=== PATIENT | female | born 1990 | race African-American/Black ===

== ENCOUNTER 2017-07-15 14:20 | Emergency (ER) | payer MEDICAID, SELFPAY ==
[2017-07-15 14:22] VITALS: BP 108/65; PULSE 92; RESP 16; TEMP 37.1; O2SAT 99; BMI 27.7
--- NOTE | 2017-07-15 14:31 | RAD_ITS ---
STUDY: X-RAY - RIGHT KNEE REASON FOR EXAM: Female, 27 years old. Swelling and pain TECHNIQUE: 4 view(s) of the knee. COMPARISON: None. FINDINGS: Minimal spurring in the knee joint. No definite evidence for acute fracture seen. Small knee joint effusion suspected. IMPRESSION: No definite evidence for acute fractures. Small knee joint effusion suspected. Electronically Signed: Antonio Chirinos, at 15:13 EDT Tel , Service support , RAD/Knee 4 or More Views
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
[2017-07-15] MEDS: Naproxen 500 MG Tablet PO (14:41)
--- NOTE | 2017-07-15 15:17 | ED.DEP ---
ED Disposition - Plan for ED Patient: Chief Complaint: Lower Extremity Injury Instructions: ED Knee Pain [facility] Prescriptions: Oxycodone HCl/Acetaminophen [Percocet 5/325] 1 tab PO Q6H PRN PRN 3 Days #2 tab PRN Reason: Pain Naproxen [Naprosyn] 500 mg PO BID PRN #20 tab Referrals: Rick Asencio MD [Primary Care Provider] -
[2017-07-15 15:30] VITALS: BP 100/53; PULSE 93; RESP 16; O2SAT 98
== END 2017-07-15 15:31 | disposition home or self-care (01) ==
PROVIDERS: Emergency Provider Emergency Medicine; Family Provider Family Medicine; PCP Family Medicine
DX: S80.01XA Contusion of right knee, initial encounter (principal); Y09 Assault by unspecified means; Y93.89 Activity, other specified; Y92.89 Other specified places as the place of occurrence of the external cause; Y99.8 Other external cause status
CPT/HCPCS: 73564; 99282

== ENCOUNTER 2018-05-22 10:28 | Emergency (ER) | payer MEDICAID, SELFPAY ==
[2018-05-22 10:30] VITALS: BP 126/92; PULSE 76; RESP 16; TEMP 36.2; O2SAT 99; BMI 36.8
--- NOTE | 2018-05-22 10:43 | ED.DCSUM_ITS ---
History of Present Illness Chief Complaint: Back Informant: Patient Onset: Yesterday Context: Sudden Onset Timing: Continuous Quality: Pain right lower back radiating posteriorly to her ankle Location: Right side Current Severity: Mild Maximum Severity: Moderate Worsened by: Weightbearing, walking, bending Relieved by: Nothing Associated Symptoms: Radiation posterior right lower extremity, otherwise normal Narrative: Patient is a 28-year-old female status post discectomy 2011. She is uncertain whether it was L4 or L5 disc level. She presents with atraumatic right lower back pain that radiates posterior aspect right lower extremity. She reports pain with movement, weightbearing and bending. She complains of increased pain going up or down steps. She does not have weakness in her quadricep muscles. She denies foot drop. She denies bowel bladder dysfunction. Denies saddle paresthesia or anesthesia. She denies fever, chills night sweats. Denies weight gain or weight loss. She denies urologic symptoms. She denies IV drug use. She is on no immunosuppressive meds. Prior similar symptoms: Yes - Prior to discectomy 2011 Recent Illness/Hospitalization: No Past Medical History - Allergies and Home Meds Allergies/Adverse Reactions: Allergies hydrocodone bitartrate [From Vicodin] Adverse Reaction (Verified 05/22/18 10:39) Nausea Primary Care Physician: Patti Gonzalez MD [STAFF PHYSICIAN] - 1-2 Weeks Rick Asencio MD [Primary Care Provider] - Surgical History: - - Discectomy lumbar spine uncertain level Lives: Spouse/ Significant Other Smoking Status: Former smoker Drugs: None Review of Systems General: Denies: Chills, Fever, Malaise, Subjective, Sweats, Weight loss, - Eyes: Denies: Visual changes - bilaterally, Diplopia ENT: Denies: Rhinorrhea, Sore throat Cardiovascular: Denies: Chest pain, Palpitations Respiratory: Denies: Dyspnea, Cough, Dyspnea on exertion Gastrointestinal: Denies: Abdominal pain, Nausea, Vomiting, Diarrhea, Melena, Hematochezia Genitourinary: Denies: Dysuria, Hematuria, Frequency Musculoskeletal: Reports: Back pain, Extremity Pain - She complains of pain posterior central right lower extremity.. Denies: Myalgias, Arthralgias, Neck pain, Swelling, -, - Skin: Denies: Rash, Wounds Neurological: Denies: Headache, Weakness, Numbness Hematologic: Denies: Easy bruising, Easy bleeding Allergy: Denies: Uticaria, Swelling of the mouth Physical Exam Vital Signs/Narrative: Vital Signs Temp Pulse Resp BP Pulse Ox 05/22/18 10:30 97.2 F L 76 16 126/92 H 99 Inital Vital Signs reviewed: Yes General: Well nourished, Well developed, Obese - BMI is 36.8., No Acute Distress Head: Normocephalic, Atraumatic Eyes: Perrl, EOMI ENT: Moist mucous membranes, No rhinorrhea Neck: Supple, Nontender, No lymphadenopathy, No JVD Cardiovascular: Regular rate, Regular rhythm, No murmurs, Normal S1, Normal S2 Respiratory: No distress, CTA bilaterally, Chest nontender Abdomen: Soft, Nontender, Nondistended, Normal bowel sounds, No masses Back: Nontender, Normal Inspection, - - There is minimal discomfort right lower back. Straight leg test is positive at 30-40 degrees on right with a positive bowstring sign. Crossover test is negative.. Negative for: Spinal tenderness Extremities: Nontender, No edema, - - DP and PT pulse are 2+ and symmetric. Skin: Normal color, No rash. Negative for: Cyanosis, Jaundice, Rash Neurological: Alert, Oriented x3, Cranial nerves II-XII grossly intact, Normal Strength, Normal DTR - Patella and ankle reflex are 3+ and symmetric. There is no clonus or Babinski sign noted., Normal Gait - Patient walks with a slight limp. She is able to walk on her heels and toes. She is able to do a 1 legged squat right and left side.. Negative for: Normal Sensation - She has abnormal sensation distal lateral right leg and lateral aspect of right foot. Psychological: Normal affect, Normal Mood Diagnostic/Tx/Re-eval - Medical Decision Making Patient has acute atraumatic back pain with sciatica and positive straight leg test and bowstring sign. Crossover test was negative. IV was established. She was medicated. Since she has no neurologic deficits radiologic imaging is not indicated at this time. And history and physical exam do not raise concern for cauda equina. Patient was reassessed at 1115. She reports significant improvement. She still has some discomfort. Will reevaluate again at 1130. If symptoms are not worse will discharge with prescription for NSAID and opiate analgesia and referral to spine surgery. ED Disposition - Plan for ED Patient: Disposition: [facility] Diagnosis: Right-sided low back pain with right-sided sciatica Instructions: ED Sciatica Prescriptions: Hydrocodone Bitart/Apap 5-325 [[place] 5MG-325MG] 1 tab PO Q6H PRN PRN 3 Days #10 tab PRN Reason: Pain Naproxen [Naprosyn] 500 mg PO BID #14 tab Referrals: Rick Asencio MD [Primary Care Provider] - Patti Gonzalez MD [STAFF PHYSICIAN] - 1-2 Weeks
[2018-05-22] MEDS: Morphine 4 MG/ML Syringe IV (10:53)
[2018-05-22] MEDS: Ondansetron 4 MG/2 ML Vial IV (10:53)
[2018-05-22] MEDS: Ketorolac 15 MG/ML Vial IV (10:53)
--- NOTE | 2018-05-22 11:35 | ED.RN ---
MD AWARE OF ADVERSE RXN TO HYDROCODONE, RXN IS NAUSEA. RX SENT HOME FOR HYDROCODONE AND TOLD TO TELL PT TO EAT CRACKERS.
[2018-05-22 11:40] VITALS: BP 122/87; PULSE 78; RESP 12; O2SAT 99
== END 2018-05-22 11:41 | disposition short-term general hospital (02) ==
PROVIDERS: Emergency Provider Emergency Medicine; Family Provider Family Medicine; PCP Family Medicine
DX: M54.41 Lumbago with sciatica, right side (principal); Z87.891 Personal history of nicotine dependence; E66.9 Obesity, unspecified; Z68.36 Body mass index [BMI] 36.0-36.9, adult
CPT/HCPCS: 96374; 96375; 99284; A4216; J2405

== ENCOUNTER 2018-07-09 09:27 | Emergency (ER) | payer MEDICAID, SELFPAY ==
[2018-07-09 09:28] VITALS: BP 125/75; PULSE 79; RESP 17; TEMP 36.4; O2SAT 98; BMI 32.5
--- NOTE | 2018-07-09 09:41 | ED.VISSUMM ---
- ER Visit Summary Date of Service: 07/09/18 Chief Complaint: [Back pain] History of Present Illness: The patient is a 28 F [presents to the emergency department complaint of back pain started 2 days ago. Patient states that she slipped on a different mattress and woke up with pain that that eventually resolved after walking around for short time. Patient states that she woke up again this morning with pain and the pain is not gone away. Patient describes pain rating down her right leg. She denies any weakness in the extremity. She denies any recent fall or injury. Patient does have a history of a discectomy 6 years ago. Patient was told she may need another discectomy at some point but she never followed up with her surgeon. 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 Patient states this is been a recurrent issue of back pain for her and the presentation is typical. She is not in pain management. She denies urinary symptoms. Denies saddle anesthesia. Denies loss of bowel or bladder function.] Patient states that she had an MRI within the last year that showed improvement compared to prior MRI and there was nothing otherwise concerning her surgical. Physical Examination: [HEENT-PERRLA, EOMI. Cranial nerves II through XII grossly intact. TMs clear. Mucous membranes moist. No adenopathy. Cardiovascular-regular rate and rhythm without murmur or ectopy Lungs-clear to auscultation, chest wall stable without crepitus or subcu emphysema Abdomen-normoactive bowel sounds, soft, nontender, no rebound or rigidity, no peritoneal signs. Back exam-patient has diffuse tenderness over the lumbar paraspinal musculature on the right. Patient has a positive straight leg raise on the right at 35 degrees. Deep tendon reflexes are plus 2 out of 4 bilaterally at the patella and Achilles. Patient has normal L5 extension bilaterally. Patient has somewhat decreased sensation to the lateral aspect of the right calf compared to the left. Extremities-intact ?4, normal range of motion, normal pulses, atraumatic] Test Results: [None indicated] Emergency Department Course and Treatment: [Patient was medicated with Dilaudid, Toradol, and Norflex.] Treatment Plan: [Patient will be given a prescription for Percocet, Naprosyn, and Flexeril. Patient also will be started on a Medrol Dosepak.] Disposition: [Discharged home in stable condition. Patient advised to follow-up with her primary care physician and will be given referral to neurosurgeon for follow-up.] Impression: [Acute exacerbation of chronic back pain and sciatica] This note was generated with [employer] dictation software. It may contain incorrect words, spelling, and punctuation that were not noted in review of the chart prior to signing ED Disposition - Plan for ED Patient: Referrals: Rick Asencio MD [Primary Care Provider] -
--- NOTE | 2018-07-09 09:47 | ED.DEP ---
ED Disposition - Plan for ED Patient: Instructions: ED Sciatica Prescriptions: Oxycodone HCl/Acetaminophen [Percocet 5/325] 1 tab PO Q6H PRN PRN 3 Days #12 tab PRN Reason: Pain MethylPREDNISolone DosePak [Medrol DosePak] 4 mg PO UD #1 box Naproxen [Naprosyn] 500 mg PO BID PRN #20 tab Cyclobenzaprine [Flexeril] 10 mg PO TID PRN #20 tab PRN Reason: Muscle Spasm Referrals: Rick Asencio MD [Primary Care Provider] - 3-5 Days Albert Muir MD [NON-STAFF] - 3-5 Days
[2018-07-09] MEDS: Ketorolac 60 MG/2 ML Vial IM (10:00)
[2018-07-09] MEDS: Orphenadrine 60 MG/2 ML Ampul IM (10:00)
[2018-07-09] MEDS: HYDROmorphone 1 MG/ML Syringe IM (10:01)
[2018-07-09 11:02] VITALS: BP 126/74; PULSE 62; RESP 16; O2SAT 100
== END 2018-07-09 11:03 | disposition home or self-care (01) ==
LOC: ED 10:31
PROVIDERS: Emergency Provider Emergency Medicine; Family Provider Family Medicine; PCP Family Medicine
DX: M54.41 Lumbago with sciatica, right side (principal); G89.29 Other chronic pain; M54.16 Radiculopathy, lumbar region
CPT/HCPCS: 96372; 99282

== ENCOUNTER 2018-09-04 16:41 | Emergency (ER) | payer MEDICAID, SELFPAY ==
[2018-09-04 16:42] VITALS: BP 116/73; PULSE 68; RESP 18; TEMP 36.6; O2SAT 98; BMI 34.4
--- NOTE | 2018-09-04 16:56 | ED.RN ---
stomach burning, nontender
--- NOTE | 2018-09-04 16:59 | US_ITS ---
STUDY: FIRST TRIMESTER OBSTETRICAL ULTRASOUND REASON FOR EXAM: Female, 28 years old. , pelvic pain, abdominal pain. LMP: 06/16/2018 TECHNIQUE: Transabdominal TECHNICAL QUALITY: Adequate. PRIOR ULTRASOUND: None. FINDINGS: There is visualization of a single gestational sac in a normal intrauterine position. The mean sac diameter (MSD) measures 59 mm, indicating an estimated gestational age (EGA) of weeks, days. The gestational sac shape is within normal limits. There is a visualized yolk sac. The yolk sac measures 5 mm. There is visualization of the placenta. Placenta is anterior. There is visualization of a live embryo. The crown-rump length (CRL) measures 48 mm, indicating an estimated gestational age (EGA) of 11 weeks, 4 days. There is demonstrated cardiac activity with a heart rate of 169 bpm. The estimated gestation age (EGA) by LMP is 11 weeks, 3 days. The estimated date of delivery (JERMAN) by LMP is . The estimated gestation age (EGA) by US is 11 weeks, 4 days. The estimated date of delivery (JERMAN) by US is . The uterus measures 14.8 x 8.5 x 12.0. There is no demonstrated uterine fibroid. The cervix is closed. The right ovary measures 3.3 x 2.3 x 2.3. There is no right ovarian cyst. There is no visualized right adnexal mass or complex lesion. The left ovary measures 5.3 x 1.7 x 2.6. There is no left ovarian cyst. There is no visualized left adnexal mass or complex lesion. There is no fluid in the cul de sac. US/Init OB < 14Wks US IMPRESSION: Living intrauterine of 11 weeks 4 days as described above. Electronically Signed: Froilan Sandoval MD at 18:12 EDT Tel , Service support ,
--- NOTE | 2018-09-04 17:00 | US_ITS ---
STUDY: ABDOMINAL ULTRASOUND - RIGHT UPPER QUADRANT REASON FOR VISIT: Female, 28 years old. Pain TECHNIQUE: Ultrasound evaluation of the right upper quadrant was performed with real-time and static andrews-scale imaging. TECHNICAL QUALITY: Adequate. COMPARISON: None. FINDINGS: Liver: The liver measures 17 cm. There is normal echogenicity of the liver. The bile ducts are within normal limits. There is hepatic color flow. The direction of portal flow is hepatopetal. There is no demonstrated mass lesion. Gallbladder: Normal distended gallbladder. The gallbladder wall measures 2 mm. There is a negative sonographic De Paz's sign. There is no pericholecystic fluid. There are no gallstones. Common Bile Duct (C.B.D.): The common bile duct measures 3 mm. Pancreas: Normal size of the head, body and tail of the pancreas. There is normal echogenicity of the pancreas. There is no demonstrated pancreatic mass or cyst. Right Kidney: Normal size of the right kidney. The right kidney measures 13 cm. Normal renal cortex. There is no demonstrated renal mass or cyst. There is no right hydronephrosis. US/Gallbladder IMPRESSION: No acute abdominal pathology identified. Mild hepatomegaly. Electronically Signed: Rick Bond, at 18:00 EDT Tel , Service support ,
--- NOTE | 2018-09-04 17:02 | ED.VISSUMM ---
- ER Visit Summary Date of Service: 09/04/18 Chief Complaint: Abdominal pain History of Present Illness: The patient is a 28 F presenting with abdominal pain. She states this started earlier today. Pain has been waxing and waning throughout the day. She has nausea with no vomiting. She denies diarrhea or constipation. Denies urinary complaints. She is 11 weeks . She denies vaginal bleeding or fluid leakage. She is G2, P1. She has had an ultrasound during this . She denies other complaints. Physical Examination: Vitals are stable. Patient is afebrile. Alert no acute distress. HEENT exam is unremarkable. Neck is supple. Lungs are clear and equal bilaterally. Heart is regular rate and rhythm. Abdomen is soft right upper quadrant and epigastric tenderness with no rebound or guarding Extremities are unremarkable. Skin is warm and dry. Remainder of exam is unremarkable. Emergency Department Course and Treatment: Patient given IV fluids, Zofran. CBC, chemistries unremarkable. Liver lipase are normal. Urinalysis unremarkable. Pelvic ultrasound shows living intrauterine of 11 weeks 4 days. Gallbladder ultrasound shows no acute abdominal pathology identified. On reevaluation, patient is feeling much improved. She is advised to follow-up with her REMOVABLE PROSTHODONTIST. Advised return instructions should her symptoms worsen. Disposition: Discharge home Impression: Abdominal pain, This note was generated with [employer] dictation software. It may contain incorrect words, spelling, and punctuation that were not noted in review of the chart prior to signing ED Disposition - Plan for ED Patient: Instructions: ABDOMINAL PAIN, Unknown Cause, (Female) Referrals: Gwendolyn Ayala MD [STAFF PHYSICIAN] - Rick Asencio MD [Primary Care Provider] -
[2018-09-04] MEDS: 0.9% Normal Saline 1,000 ML 999 ML IV (17:08)
[2018-09-04] MEDS: Ondansetron 4 MG/2 ML Vial IV (17:08)
[2018-09-04 17:16] LABS: Mucous, Urine 0 SEEN /hpf (<or=2+); Red Blood Cells-Urine 0 SEEN /hpf (0-5)
[2018-09-04 17:19] LABS: Color, Urine Yellow (Yellow); Glucose, Dipstick Normal (Normal); Ketone-Dipstick Negative (Negative); Leukocyte Esterase-Dipstick 500 /ul (Negative); Nitrite-Dipstick Negative (Negative); Occult Blood-Urine Negative /ul (Negative); Protein-Dipstick Negative (Negative); Specific Gravity, Urine 1.015 (1.002-1.030); Urine Bilirubin Dipstick Negative (Negative); Urine Clarity Clear (Clear); Urine Urobilinogen Normal (Normal); Urine pH 6.5 (5.0 - 8.0)
[2018-09-04 17:20] LABS: Absolute Lymphocyte Count 2.29 X10^3/uL (0.83-4.51); Absolute Neutrophil Count 5.7 X10^3/uL (2.0-7.7); Basophil# 0.03 X10^3/uL; Basophil% 0.3 % (0-1); Eosinophil# 0.07 X10^3/uL; Eosinophils% 0.8 % (0-5); Hematocrit 37.7 % (37-47); Hemoglobin 12.4 g/dL (12.0-15.0); Lymphocyte # 2.29 X10^3/ul (4.0); Lymphocyte % 25.9 % (19-41); Mean Corp Hgb Conc 32.9 g/dL (32-36); Mean Corpuscular Hgb 28.5 pg (27.0-32.0); Mean Corpuscular Volume 86.7 fL (81-99); Mean Platelet Vol. 9.2 fl (6.2-12.0); Monocyte# 0.76 X10^3/uL; Monocyte% 8.6 % (0-10); NRBC Flagged by Analyzer 0 % (0-5); Neutrophil # 5.67 X10^3/uL (2.7-7.7); Neutrophil % 64.1 % (47-70); Platelet Count 337 K/mm3 (150-450); RBC Distribution Width CV 12.8 % (11.6-14.6); RBC Distribution Width SD 40.3 fl (35.1-43.9); Red Blood Count 4.35 M/mm3 (4.2-5.4); White Blood Count 8.9 K/mm3 (4.4-11.0)
[2018-09-04 17:25] LABS: Bacteria RARE /hpf (None Seen); Squamous Epithelial Cells - UA 0-5 SEEN /hpf (5-10)
[2018-09-04 17:26] LABS: White Blood Cells 0-5 SEEN /hpf (0-5)
[2018-09-04 17:38] LABS: AST(SGOT) 18 U/L (15-37); Alanine Aminotransfer ALT/SGPT 29 U/L (13-56); Albumin, Serum 3.3 g/dL (3.2-5.0); Alkaline Phosphatase 40 U/L (45-117); Anion Gap 3 (5-15); BUN 11 mg/dL (7-18); BUN/Creat Ratio 17.2 RATIO (10-20); Bilirubin, Direct < 0.05 mg/dL (0.00-0.30); Calcium,Total 8.5 mg/dL (8.5-10.1); Chloride 105 mmol/L (98-107); Creatinine, Serum 0.64 mg/dL (0.55-1.02); EST Glomerular Filtration Rate 117 mL/min (>60); Est Glom Filt Rate - Afr Amer 142 mL/min (>60); Estimated Creatinine Clearance 113.01 ml/min; Globulin 3.7 g/dL (2.2-4.2); Glucose 84 mg/dL (74-106); Lipase 133 U/L (73-393); Potassium 3.6 mmol/L (3.5-5.1); Sodium Level 136 mmol/L (136-145)
--- NOTE | 2018-09-04 18:25 | ED.DEP ---
ED Disposition - Plan for ED Patient: Instructions: ABDOMINAL PAIN, Unknown Cause, (Female) Referrals: Rick Asencio MD [Primary Care Provider] - Gwendolyn Ayala MD [STAFF PHYSICIAN] -
[2018-09-04 18:35] VITALS: BP 107/70; PULSE 69; RESP 16; O2SAT 100
== END 2018-09-04 18:36 | disposition home or self-care (01) ==
LOC: ED 17:57
PROVIDERS: Emergency Provider Emergency Medicine; Family Provider Family Medicine; PCP Family Medicine
DX: O26.891 Other specified pregnancy related conditions, first trimester (principal); R10.13 Epigastric pain; Z3A.11 11 weeks gestation of pregnancy
CPT/HCPCS: 76705; 76801; 80048; 80076; 81001; 83690; 85025; 96361; 96374; 99283; J7030; J2405

== ENCOUNTER 2018-12-23 20:44 | Emergency (ER) | payer MEDICAID, SELFPAY ==
[2018-12-23 20:44] VITALS: BP 118/81; PULSE 81; RESP 16; TEMP 36.4; O2SAT 98; BMI 36.7
[2018-12-23] MEDS: 0.9% Normal Saline 1,000 ML 1000 ML IV (21:18)
[2018-12-23 21:42] LABS: Absolute Lymphocyte Count 2.49 X10^3/uL (0.83-4.51); Absolute Neutrophil Count 7.8 X10^3/uL (2.0-7.7); Basophil# 0.04 X10^3/uL; Basophil% 0.3 % (0-1); Eosinophils% 0.9 % (0-5); Hematocrit 34.3 % (37-47); Hemoglobin 11.3 g/dL (12.0-15.0); Lymphocyte # 2.49 X10^3/ul (4.0); Lymphocyte % 21.7 % (19-41); Mean Corp Hgb Conc 32.9 g/dL (32-36); Mean Corpuscular Hgb 28.7 pg (27.0-32.0); Mean Corpuscular Volume 87.1 fL (81-99); Mean Platelet Vol. 9.5 fl (6.2-12.0); Monocyte# 0.91 X10^3/uL; Monocyte% 7.9 % (0-10); NRBC Flagged by Analyzer 0 % (0-5); Neutrophil # 7.79 X10^3/uL (2.7-7.7); Neutrophil % 68.2 % (47-70); Platelet Count 317 K/mm3 (150-450); RBC Distribution Width CV 13.5 % (11.6-14.6); RBC Distribution Width SD 42.6 fl (35.1-43.9); Red Blood Count 3.94 M/mm3 (4.2-5.4); White Blood Count 11.5 K/mm3 (4.4-11.0)
[2018-12-23 21:44] LABS: Anion Gap 8 (5-15); BUN 8 mg/dL (7-18); BUN/Creat Ratio 17.1 RATIO (10-20); Calcium,Total 8.9 mg/dL (8.5-10.1); Chloride 107 mmol/L (98-107); Creatinine, Serum 0.47 mg/dL (0.55-1.02); EST Glomerular Filtration Rate 168 mL/min (>60); Est Glom Filt Rate - Afr Amer 203 mL/min (>60); Estimated Creatinine Clearance 153.88 ml/min; Glucose 90 mg/dL (74-106); Potassium 3.3 mmol/L (3.5-5.1); Sodium Level 138 mmol/L (136-145)
[2018-12-23 22:24] LABS: Bacteria 0 SEEN /hpf (None Seen); Mucous, Urine 0 SEEN /hpf (<or=2+); Red Blood Cells-Urine 0 SEEN /hpf (0-5)
[2018-12-23 22:28] LABS: Color, Urine Yellow (Yellow); Glucose, Dipstick Normal (Normal); Ketone-Dipstick 5 mg/dl (Negative); Leukocyte Esterase-Dipstick 25 /ul (Negative); Nitrite-Dipstick Negative (Negative); Occult Blood-Urine Negative /ul (Negative); Protein-Dipstick Negative (Negative); Urine Bilirubin Dipstick Negative (Negative); Urine Clarity Sl. Cloudy (Clear); Urine Urobilinogen Normal (Normal)
[2018-12-23 22:38] LABS: Squamous Epithelial Cells - UA 0-5 SEEN /hpf (5-10); White Blood Cells 0-5 SEEN /hpf (0-5)
--- NOTE | 2018-12-23 22:42 | ED.DCSUM_ITS ---
- ER Visit Summary Date of Service: 12/23/18 Chief Complaint: Generalized weakness History of Present Illness: The patient is a 28 F reportedly 27 weeks G2, P1 Ab0. States that she has had nausea vomiting diarrhea intermittently throughout the but she did not want to take any medication for that. 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 Denies any dysuria. No fever. No bleeding. Physical Examination: Young female vital signs are stable afebrile. She does not look septic or toxic. She is in no acute distress. HEENT exam unremarkable. Moist week's membranes. Neck nontender. No lymphadenopathy. Lungs clear to auscultation bilaterally. Heart regular rhythm no murmur. Abdomen soft. Nontender. Normal bowel sounds. No peritoneal signs. Gravid nontender uterus. Patient is moving all 4 extremities. Calves are nontender without edema or cords. Neurologically she is awake and alert with no focal motor deficits. Test Results: CBC shows a white count of 11. Hemoglobin 11.3 her baseline is typically 12. No bands. Electrolytes show potassium of 3.3. Gap of 8. Normal creatinine. UA normal. heart tones positive. Emergency Department Course and Treatment: Treated with a liter normal saline. On repeat exam she is doing well at 2241. She will be discharged to home. Treatment Plan: Fluids and rest. Follow-up with her FREIGHT CLERK. Disposition: Discharge Impression: Generalized weakness Nausea and vomiting 27 weeks This note was generated with [employer] dictation software. It may contain incorrect words, spelling, and punctuation that were not noted in review of the chart prior to signing ED Disposition - Plan for ED Patient: Disposition: Home or Assisted Living Instructions: WEAKNESS, Unk Cause Prescriptions: Ondansetron [Zofran Odt] 4 mg PO Q8H PRN PRN #10 tab PRN Reason: Nausea Prescription Printed Referrals: Rick Asencio MD [Primary Care Provider] - As Needed Otilia Fletcher MD [STAFF PHYSICIAN] - 3-5 Days if not improving Additional Instructions: Fluids and rest. Zofran as needed for nausea. Follow-up with your PRESS PIPE INSPECTOR doctors.
--- NOTE | 2018-12-23 22:44 | ED.DEP ---
ED Disposition - Plan for ED Patient: Disposition: Home or Assisted Living Instructions: WEAKNESS, Unk Cause Prescriptions: Ondansetron [Zofran Odt] 4 mg PO Q8H PRN PRN #10 tab PRN Reason: Nausea Prescription Printed Referrals: Rick Asencio MD [Primary Care Provider] - As Needed Otilia Fletcher MD [STAFF PHYSICIAN] - 3-5 Days if not improving Additional Instructions: Fluids and rest. Zofran as needed for nausea. Follow-up with your RESIDENT SERVICES DIRECTOR doctors.
[2018-12-23 23:10] VITALS: BP 104/58; PULSE 69; RESP 14; O2SAT 99
== END 2018-12-23 23:10 | disposition home or self-care (01) ==
PROVIDERS: Emergency Provider Emergency Medicine; Family Provider Family Medicine; PCP Family Medicine
DX: O21.2 Late vomiting of pregnancy (principal); O26.892 Other specified pregnancy related conditions, second trimester; R53.1 Weakness; Z3A.27 27 weeks gestation of pregnancy
CPT/HCPCS: 80048; 81001; 85025; 96360; 99284; J7030; A4216

== ENCOUNTER 2019-01-10 14:36 | Emergency (ER) | payer MEDICAID, SELFPAY ==
[2019-01-10 14:37] VITALS: BP 108/69; PULSE 96; RESP 16; TEMP 36.7; O2SAT 99; BMI 35.3
[2019-01-10 15:03] VITALS: O2SAT 97
--- NOTE | 2019-01-10 15:19 | CT_ITS ---
STUDY: CTA CHEST REASON FOR EXAM: Female, 28 years old. Elevated d-dimer. Shortness of breath. Patient is 29 weeks RADIATION DOSAGE (If Supplied By Facility): CTDIvol = ( 19.11 ) mGy, DLP = ( 581.07 ) mGycm TECHNIQUE: The examination was performed with the intravenous administration of IV Isovue 370 100. Post-processing of the angiographic images was performed, with multiplanar reformation and 3D reconstruction. Individualized dose optimization techniques were used for this CT. COMPARISON: CT abdomen and pelvis dated April 20, 2016 FINDINGS: Normal enhancement of the main pulmonary artery and right and left pulmonary arteries. Normal enhancement of the bilateral peripheral pulmonary arteries. There is no demonstrated pulmonary embolism. Normal thoracic aorta and visualized great vessels. There is no demonstrated aortic dissection. Normal heart and pericardium. Normal mediastinum. Normal hilar regions. Normal visualized trachea and bronchi. The lungs are well expanded. Normal pulmonary parenchyma. Normal pleura. Normal chest wall structures. Normal osseous structures. Normal visualized upper abdomen. CT/CTA Chest W/WO Contrast IMPRESSION: Normal CTA chest examination, without a demonstrated pulmonary embolism or arterial dissection. Electronically Signed: Narciso Santana DO at 16:36 EST Tel , Service support ,
--- NOTE | 2019-01-10 15:20 | ED.DCSUM_ITS ---
- ER Visit Summary Date of Service: 01/10/19 Chief Complaint: Shortness of breath History of Present Illness: The patient is a 28 F who presents with shortness of breath that has been constant throughout her . Patient states she is approximately 7 months . Patient states her breathing is worse with any exercise. Patient denies any cough. Patient denies any fevers or chills. Patient denies any sore throat or rhinorrhea. Patient states she has some intermittent chest pain that she describes as a weird feeling in her chest. Patient states this comes and goes. Patient states she did have a syncopal episode yesterday. Patient went to urgent care today and was told to come to [facility] emergency department because her d-dimer was elevated. Physical Examination: Vital signs are stable. Patient is afebrile. Patient is in no acute distress. Oral mucosa is pink and moist. Neck is supple. Trachea is midline. There is no JVD. Heart was regular rate and rhythm. Lungs are clear and equal bilaterally. Abdomen is soft. There is a gravid uterus. There is no tenderness. There is no guarding or rebound. Cranial nerves II through XII are intact. There are no focal motor or sensory deficits noted. Test Results: CBC shows a mild anemia with a hemoglobin of 11.2 and hematocrit 32.9. Basic metabolic profile was normal. CTA of the chest was obtained. There is no evidence of pulmonary embolism or aortic dissection. Emergency Department Course and Treatment: Patient was instructed to follow-up with her EDUCATION DEPARTMENT CHAIR and primary care physician as scheduled. Patient understood and was agreeable with the plan. All questions were answered. Disposition: Discharge home Impression: 1. Dyspnea 2. This note was generated with [employer] dictation software. It may contain incorrect words, spelling, and punctuation that were not noted in review of the chart prior to signing ED Disposition - Plan for ED Patient: Disposition: Home or Assisted Living Diagnosis: Dyspnea Instructions: ED Dyspnea Referrals: Rick Asencio MD [Primary Care Provider] - 5-7 Days
[2019-01-10] MEDS: 0.9% Normal Saline 1,000 ML 1000 ML IV (15:33)
[2019-01-10 15:39] LABS: Absolute Lymphocyte Count 2.01 X10^3/uL (0.83-4.51); Absolute Neutrophil Count 6.7 X10^3/uL (2.0-7.7); Basophil# 0.01 X10^3/uL; Basophil% 0.1 % (0-1); Eosinophil# 0.08 X10^3/uL; Eosinophils% 0.8 % (0-5); Hematocrit 32.9 % (37-47); Hemoglobin 11.2 g/dL (12.0-15.0); Lymphocyte # 2.01 X10^3/ul (4.0); Lymphocyte % 20.9 % (19-41); Mean Corpuscular Hgb 29.6 pg (27.0-32.0); Mean Corpuscular Volume 86.8 fL (81-99); Mean Platelet Vol. 9.4 fl (6.2-12.0); Monocyte# 0.79 X10^3/uL; Monocyte% 8.2 % (0-10); NRBC Flagged by Analyzer 0 % (0-5); Neutrophil # 6.67 X10^3/uL (2.7-7.7); Neutrophil % 69.2 % (47-70); Platelet Count 286 K/mm3 (150-450); RBC Distribution Width CV 13.9 % (11.6-14.6); RBC Distribution Width SD 43.5 fl (35.1-43.9); Red Blood Count 3.79 M/mm3 (4.2-5.4); White Blood Count 9.6 K/mm3 (4.4-11.0)
[2019-01-10 15:55] LABS: Anion Gap 8 (5-15); BUN 6 mg/dL (7-18); BUN/Creat Ratio 13.6 RATIO (10-20); Calcium,Total 8.5 mg/dL (8.5-10.1); Chloride 107 mmol/L (98-107); Creatinine, Serum 0.44 mg/dL (0.55-1.02); EST Glomerular Filtration Rate 179 mL/min (>60); Est Glom Filt Rate - Afr Amer 217 mL/min (>60); Estimated Creatinine Clearance 164.38 ml/min; Glucose 100 mg/dL (74-106); Potassium 3.5 mmol/L (3.5-5.1); Sodium Level 139 mmol/L (136-145)
[2019-01-10 17:13] VITALS: BP 128/89; PULSE 90; RESP 16; O2SAT 99
== END 2019-01-10 17:15 | disposition home or self-care (01) ==
PROVIDERS: Emergency Provider Emergency Medicine; Family Provider Family Medicine; PCP Family Medicine
DX: O99.519 Diseases of the respiratory system complicating pregnancy, unspecified trimester (principal); R06.00 Dyspnea, unspecified; Z3A.00 Weeks of gestation of pregnancy not specified
CPT/HCPCS: 71275; 80048; 85025; 96360; 99283; J7030; Q9967; A4216

== ENCOUNTER 2019-01-22 15:06 | Emergency (ER) | payer MEDICAID, SELFPAY ==
[2019-01-22 15:07] VITALS: BP 115/71; PULSE 87; RESP 16; TEMP 36.2; O2SAT 100; BMI 35.6
--- NOTE | 2019-01-22 15:16 | EKG12_ITS ---
Test Reason : DIZZINESS Blood Pressure : / mmHG Vent. Rate : 086 BPM Atrial Rate : 086 BPM P-R Int : 158 ms QRS Dur : 086 ms QT Int : 378 ms P-R-T Axes : 041 057 023 degrees QTc Int : 452 ms Normal sinus rhythm Normal ECG Confirmed by KAROLINA ZHANG, BRANDI ([id number]), newspaper editor SHANE MATAMOROS ([id number]) on 01/29/2019 11:31:24 AM Referred By: JAMES Confirmed By:ROSA TURCIOS MD
--- NOTE | 2019-01-22 15:17 | ED.VIS.GEN ---
History of Present Illness Chief Complaint: Syncope Informant: Patient Onset: Days Context: Sudden Onset Current Severity: Mild Maximum Severity: Moderate Narrative: The patient is a 28-year-old female who is G2, P1 at approximately 32 weeks gestation that presents to the emergency department after syncopal event. Patient states it happened Sunday. She states she was in [employer]. She states that she was sitting and began to feel overheated. She states that she was nauseated and started to have tunnel vision. She then had a witnessed syncopal events. There was no seizure-like activity. She states that she had called her primary care who referred her to the emergency department. The patient states that she does have a history of recurrent syncope and did have it in her of the . She denies any chest pain. She denies any fevers or chills. She has had mild nausea. She denies any other systemic symptoms. Prior similar symptoms: No Recent Illness/Hospitalization: No Past Medical History - Allergies and Home Meds Allergies/Adverse Reactions: Allergies hydrocodone bitartrate [From Vicodin] Adverse Reaction (Verified 01/22/19 15:07) Nausea Primary Care Physician: Rick Asencio MD [Primary Care Provider] - Prior records reviewed: Yes Past Medical History: - - Currently Surgical History: - - Discectomy lumbar spine uncertain level Lives: With Family Smoking Status: Former smoker Review of Systems General: Denies: Chills, Fever, Sweats Eyes: Denies: Visual changes - bilaterally, Diplopia ENT: Denies: Rhinorrhea, Sore throat Cardiovascular: Denies: Chest pain, Palpitations Respiratory: Denies: Dyspnea, Cough, Dyspnea on exertion Gastrointestinal: Denies: Abdominal pain, Nausea, Vomiting, Diarrhea, Melena, Hematochezia Genitourinary: Denies: Dysuria, Hematuria, Frequency Musculoskeletal: Denies: Back pain, Extremity Pain Skin: Denies: Rash, Wounds Neurological: Denies: Headache, Weakness, Numbness Physical Exam Vital Signs/Narrative: Vital Signs Temp Pulse Resp BP Pulse Ox 01/22/19 15:07 97.1 F L 87 16 115/71 100 Inital Vital Signs reviewed: Yes General: Well nourished, Well developed, No Acute Distress Head: Normocephalic, Atraumatic Eyes: Perrl, EOMI ENT: Moist mucous membranes, No rhinorrhea Neck: Supple, Nontender Cardiovascular: Regular rate, Regular rhythm, No murmurs Respiratory: No distress, CTA bilaterally, Chest nontender Abdomen: Soft, Nontender, Nondistended, Normal bowel sounds Back: Nontender, Normal Inspection Extremities: Nontender, No edema Skin: Normal color, No rash Neurological: Alert, Oriented x3, Cranial nerves II-XII grossly intact, Normal Strength, Normal Sensation Psychological: Normal affect, Normal Mood Diagnostic/Tx/Re-eval - Rhythm Strip Rhythm Strip: Sinus Rhythm Rate: 80 Ectopy: None - EKG Initial EKG Interpretation: Sinus Rhythm, No Acute Injury Pattern Prior: Unchanged - Medical Decision Making The patient presents after syncopal episode. It does not seem more like it is vasovagal in nature. She had a prodrome there was preceding the symptoms. She states that she got nauseated and felt overheated. EKG was obtained. It demonstrated sinus rhythm. There is normal axis and intervals. There is no dysrhythmia. There was no WPW or prolonged QT. Orthostatic vitals were obtained were unremarkable. The patient was not tachycardic. She is not hypertensive. I do not suspect preeclampsia or other dangerous process. Screening labs do show anemia consistent with the patient's stage of . Her heart tones were 140s and reactive. Patient was given fluids. The rest of her labs were obtained were unremarkable. She does have bacteriuria without symptoms. Given her stage of , she will be treated. I do suspect that this is more likely secondary to the hypovolemia in and a vasovagal process. I do not suspect a dangerous process. I do feel that the patient is safe to continue to follow as an outpatient. She is comfortable with this plan of care. Impression 1. Vasovagal syncope ED Disposition - Plan for ED Patient: Instructions: SYNCOPE, Vasovagal Prescriptions: Nitrofurantoin Macrocrystals [Macrobid] 100 mg PO Q12 #14 cap Prescription Printed Referrals: Rick Asencio MD [Primary Care Provider] -
--- NOTE | 2019-01-22 15:21 | NURSING ---
NO OLD EKGS
[2019-01-22 15:30] LABS: Mucous, Urine 0 SEEN /hpf (<or=2+); Red Blood Cells-Urine 0 SEEN /hpf (0-5)
[2019-01-22] MEDS: 0.9% Normal Saline 1,000 ML 1000 ML IV (15:33)
[2019-01-22 15:36] LABS: Absolute Lymphocyte Count 1.94 X10^3/uL (0.83-4.51); Absolute Neutrophil Count 8.2 X10^3/uL (2.0-7.7); Basophil# 0.02 X10^3/uL; Basophil% 0.2 % (0-1); Eosinophil# 0.05 X10^3/uL; Eosinophils% 0.5 % (0-5); Hematocrit 35.4 % (37-47); Hemoglobin 11.8 g/dL (12.0-15.0); Lymphocyte # 1.94 X10^3/ul (4.0); Lymphocyte % 17.7 % (19-41); Mean Corp Hgb Conc 33.3 g/dL (32-36); Mean Corpuscular Hgb 29.1 pg (27.0-32.0); Mean Corpuscular Volume 87.2 fL (81-99); Mean Platelet Vol. 9.5 fl (6.2-12.0); Monocyte# 0.65 X10^3/uL; Monocyte% 5.9 % (0-10); NRBC Flagged by Analyzer 0 % (0-5); Neutrophil # 8.23 X10^3/uL (2.7-7.7); Neutrophil % 74.9 % (47-70); Platelet Count 314 K/mm3 (150-450); RBC Distribution Width CV 14.1 % (11.6-14.6); RBC Distribution Width SD 44.9 fl (35.1-43.9); Red Blood Count 4.06 M/mm3 (4.2-5.4)
[2019-01-22 15:48] VITALS: BP 117/72; BP 120/85; BP 124/74; PULSE 84; PULSE 89; PULSE 96
[2019-01-22 15:53] LABS: Color, Urine Yellow (Yellow); Glucose, Dipstick Normal (Normal); Ketone-Dipstick 50 mg/dl (Negative); Leukocyte Esterase-Dipstick 100 /ul (Negative); Nitrite-Dipstick Negative (Negative); Occult Blood-Urine Negative /ul (Negative); Protein-Dipstick Negative (Negative); Specific Gravity, Urine 1.015 (1.002-1.030); Urine Bilirubin Dipstick Negative (Negative); Urine Clarity Cloudy (Clear); Urine Urobilinogen Normal (Normal)
[2019-01-22 16:00] LABS: Carboxyhemoglobin Frac (CO) 3.1 % (0.0-1.5)
[2019-01-22 16:07] LABS: Bacteria 4+ /hpf (None Seen); Squamous Epithelial Cells - UA 0-5 SEEN /hpf (5-10); White Blood Cells 5-10 SEEN /hpf (0-5)
[2019-01-22 16:12] LABS: ALB/GLOB Ratio 0.8 RATIO (0.9-2.4); AST(SGOT) 20 U/L (15-37); Alanine Aminotransfer ALT/SGPT 29 U/L (13-56); Albumin, Serum 2.9 g/dL (3.2-5.0); Alkaline Phosphatase 80 U/L (45-117); Anion Gap 8 (5-15); BUN 5 mg/dL (7-18); BUN/Creat Ratio 8.9 RATIO (10-20); Calcium,Total 8.5 mg/dL (8.5-10.1); Chloride 110 mmol/L (98-107); Creatinine, Serum 0.56 mg/dL (0.55-1.02); EST Glomerular Filtration Rate 136 mL/min (>60); Est Glom Filt Rate - Afr Amer 165 mL/min (>60); Estimated Creatinine Clearance 129.15 ml/min; Globulin 3.5 g/dL (2.2-4.2); Glucose 110 mg/dL (74-106); Potassium 3.8 mmol/L (3.5-5.1); Protein, Total 6.4 g/dL (6.4-8.2); Sodium Level 140 mmol/L (136-145)
[2019-01-22 16:23] VITALS: BP 111/79; PULSE 84; RESP 15; O2SAT 98
--- NOTE | 2019-01-22 16:24 | ED.RN ---
PT GIVEN WRITTEN AND VERBAL DISCHARGE INSTRUCTIONS AND HOME GOING PRESCRIPTIONS. PT VERBALIZES UNDERSTANDING AND DENIES ANY FURTHER QUESTIONS. PT IV D/C AND COVERED WITH 2X2 GAUZE AND PAPER TAPE. PT DRESSES SELF AND AMBULATES OUT OF DEPT ALONE.
== END 2019-01-22 16:25 | disposition home or self-care (01) ==
LOC: ED 15:49
PROVIDERS: Emergency Provider Emergency Medicine; Family Provider Family Medicine; PCP Family Medicine
DX: O26.893 Other specified pregnancy related conditions, third trimester (principal); R55 Syncope and collapse; Z3A.32 32 weeks gestation of pregnancy; Z87.891 Personal history of nicotine dependence
CPT/HCPCS: 80053; 81001; 82375; 85025; 93005; 96360; 99285; J7030

== ENCOUNTER 2019-03-05 10:57 | Outpatient (CLI) | payer MEDICAID, SELFPAY ==
[2019-03-05 11:07] VITALS: BMI 36.7
[2019-03-05] MEDS: Lactated Ringers 1,000 ML 125 ML IV (11:15)
--- NOTE | 2019-03-05 12:31 | PCM.HP.OB ---
- Problem List (1) 37 weeks gestation of Status: Acute (2) Breech presentation Status: Acute (3) Multiparity Status: Acute History Date of Admission: 03/05/19 Gestational age: 37 History of this : This is a 29 year-old, G 2, P 1, at 37 weeks gestational age here for a scheduled version for breech presentation. She denies contractions, bleeding, leaking of fluid. Good movement. Allergies hydrocodone bitartrate [From Vicodin] Adverse Reaction (Verified 03/05/19 11:09) Nausea Home Medications: Home Medications Vits [Prenatabs FA] 1 tab PO DAILY 09/04/18 Smoking Status: Former smoker Number of Fetus(es): 1 NST - FHR Rate Baby A Baseline: 130 Variability:: Moderate Accelerations:: 15 x 15 Decelerations:: None Uterine Activity:: Irritability History Past Pregnancies: Past Pregnancies Delivery Date Name GA/ Weeks Outcome Route Wt Sex Labor Length Anesthesia Delivery Location Provider FOB Physical Exam General: Alert, No apparent distress HEENT: Atraumatic Abdomen: Soft, Non Tender, Gravid Neurological: Neuro grossly intact Estimated gestational size: Appropriate for gestational size Presentation: Breech Assessment/Plan All Active Problems 37 weeks gestation of (Acute) Breech presentation (Acute) Multiparity (Acute) This is a 29 year-old, [id number] at 37 weeks gestational age presents for scheduled version for her known breech presentation. Discussed risks of a version which include but are not limited to placental abruption, hemorrhage, distress, emergent , , rupture of membranes. Reviewed alternatives which include a primary section. After discussion of risks, benefits, and alternatives the patient desired to proceed with a version. Consent obtained. Ultrasound performed showing breech presentation, and normal fluid. NST reactive prior to version.
--- NOTE | 2019-03-05 12:34 | PCM.OPRPT ---
Problem List (1) 37 weeks gestation of Status: Acute (2) Breech presentation Status: Acute (3) Multiparity Status: Acute Report of Operation Date of Procedure: 03/05/19 Pre-Operative Diagnosis: 37-week gestation, breech presentation, multiparity Post-Operative Diagnosis: As above Surgery/Procedure Performed:: External cephalic version Description of Procedure: After discussion of risks, benefits, and alternatives the patient was consented for external cephalic version. Dr. Ontiveros was the regulatory affairs assistant for the procedure. The heart tracing was obtained. The bedside ultrasound was performed showing complete breech presentation. There was adequate, normal fluid noted. Using manual pressure, the breech was manipulated in a forward roll fashion which was unsuccessful. Using manual pressure the breech was manipulated in a backwards roll fashion which was also unsuccessful. heart tones were checked intermittently during the procedure were noted to be reassuring. Discussed option for continuing the external cephalic version or scheduling her for a primary section. Patient desired to proceed with a primary section given unsuccessful external cephalic version. She was placed back on the external monitoring and the monitoring was noted to be reassuring delay.
== END 2019-03-05 11:25 | disposition home or self-care (01) ==
LOC: WPOUT 10:59 → WP 11:00
PROVIDERS: PCP Family Medicine; Referring Provider Obstetrics & Gynecology; Visit Provider Obstetrics & Gynecology
DX: O32.1XX0 Maternal care for breech presentation, not applicable or unspecified (principal); Z3A.37 37 weeks gestation of pregnancy; Z88.5 Allergy status to narcotic agent; Z87.891 Personal history of nicotine dependence
CPT/HCPCS: 96360; 96361; 36415; 59025; 59050; 59412; 76815; 99218; J7120; G0378

== ENCOUNTER 2019-03-13 22:00 | Outpatient (CLI) | payer MEDICAID, SELFPAY ==
--- NOTE | 2019-03-13 22:48 | OB.TRI.NOTE ---
History of Present Illness Was patient seen by the physician?: Yes Reason For Visit: R/O LABOR Date of Service: 03/13/19 Final JERMAN: 03/23/19 Gestational age: 38 Weeks and 4 Days Allergies hydrocodone bitartrate [From Vicodin] Adverse Reaction (Verified 03/05/19 11:09) Nausea NST - FHR Rate Baby A Baseline: 125 Variability:: Moderate Accelerations:: 15 x 15 Decelerations:: None NST Reactive:: Yes Uterine Activity:: Irregular Impression/Plan Reactive NST for decreased FM
[2019-03-13 22:55] VITALS: BMI 36.8
== END 2019-03-13 23:35 | disposition home or self-care (01) ==
LOC: WPOUT 22:33 → WP 22:33
PROVIDERS: PCP Family Medicine; Visit Provider Obstetrics & Gynecology
DX: O36.8130 Decreased fetal movements, third trimester, not applicable or unspecified (principal); Z3A.38 38 weeks gestation of pregnancy
CPT/HCPCS: 59025; 59050; 99218; G0378

== ENCOUNTER 2019-03-21 05:00 | Inpatient (IN) | payer MEDICAID, SELFPAY ==
[2019-03-21 05:15] VITALS: BMI 37.3
[2019-03-21] MEDS: Lactated Ringers 1,000 ML 999 ML IV (05:20)
[2019-03-21 05:56] LABS: Absolute Lymphocyte Count 2.42 X10^3/uL (0.83-4.51); Absolute Neutrophil Count 7.3 X10^3/uL (2.0-7.7); Basophil# 0.03 X10^3/uL; Basophil% 0.3 % (0-1); Eosinophil# 0.06 X10^3/uL; Eosinophils% 0.6 % (0-5); Hematocrit 36.7 % (37-47); Hemoglobin 11.8 g/dL (12.0-15.0); Lymphocyte # 2.42 X10^3/ul (4.0); Lymphocyte % 22.3 % (19-41); Mean Corp Hgb Conc 32.2 g/dL (32-36); Mean Corpuscular Hgb 27.6 pg (27.0-32.0); Mean Corpuscular Volume 85.9 fL (81-99); Mean Platelet Vol. 9.9 fl (6.2-12.0); Monocyte# 0.97 X10^3/uL; NRBC Flagged by Analyzer 0 % (0-5); Neutrophil # 7.29 X10^3/uL (2.7-7.7); Neutrophil % 67.2 % (47-70); Platelet Count 373 K/mm3 (150-450); RBC Distribution Width CV 13.6 % (11.6-14.6); RBC Distribution Width SD 42.1 fl (35.1-43.9); Red Blood Count 4.27 M/mm3 (4.2-5.4); White Blood Count 10.8 K/mm3 (4.4-11.0)
[2019-03-21] MEDS: Lactated Ringers 1,000 ML 150 ML IV (06:20)
[2019-03-21] MEDS: Lactated Ringers 1,000 ML 50 ML IV (08:08)
--- NOTE | 2019-03-21 08:12 | HP.PCM_ITS ---
History Date of Admission: 03/21/19 Final JERMAN: 03/23/19 Gestational age: 39 Weeks and 5 Days History of this : Patient denies complaints. Surgical History: Surgical History (Last Updated 03/21/19 @ 08:15 by Fozia Concepcion) History of back surgery Z98.890 Allergies hydrocodone bitartrate [From Vicodin] Adverse Reaction (Verified 03/21/19 07:56) Nausea Home Medications: Home Medications Vits [Prenatabs FA] 1 tab PO DAILY 09/04/18 Smoking Status: Former smoker Alcohol: None Number of Fetus(es): 1 NST - FHR Rate Baby A Baseline: 135 Variability:: Minimal, Moderate Decelerations:: Variable Uterine Activity:: Irregular History Past Pregnancies: Past Pregnancies Delivery Date Name GA/ Weeks Outcome Route Wt Infant Sex Labor Length Anesthesia Delivery Location Provider FOB Labs: See [facility] H&P Physical Exam General: Alert, Oriented x3 Abdomen: Soft, Non Tender, Non-Distended, Gravid Neurological: Cranial nerves II-XII grossly intact 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 Admit to L&D TAUS shows vtx and patient was previously breech. Discussed R/B/A of induction of labor while baby is vertex as there is concern baby has an unstable lie. Patient wishes to proceed with induction of labor today. Will start pitocin. Plan discussed with who is taking over care of patient. GBS negative EFW - less than 4500g, patient with adequate pelvis H/o sinus tachycardia - had cardiology eval at [facility] (note on chart) Pain - epidural as desired Routine care
[2019-03-21] MEDS: Oxytocin 30 units/NS 500 ml 30 UNITS/500 ML IV.SOLN IV (08:29)
[2019-03-21] MEDS: fentaNYL 100 MCG/2 ML Ampul IV (14:45)
[2019-03-21] MEDS: Ondansetron 4 MG/2 ML Vial IV (15:23)
[2019-03-21] MEDS: Lactated Ringers 500 ML 999 ML IV (16:42)
[2019-03-21] MEDS: fentaNYL-bupivacaine (epidural) 100 ML BAG EPIDURAL (17:32)
[2019-03-21] MEDS: Lactated Ringers 1,000 ML 200 ML IV (18:52)
[2019-03-21] MEDS: Oxytocin 30 units/NS 500 ml 30 UNITS/500 ML IV.SOLN 334 UNITS IV (20:31)
--- NOTE | 2019-03-21 20:46 | PCM.OPRPT ---
Vaginal Delivery Maternal Presentation: Medically Indicated Induction - unstable lie, recently verted to Method of Induction: Pitocin, Amniotomy Amniotic Membrane Rupture Type: Artificial Amniotic Fluid Description: Clear Final JERMAN: 03/23/19 Gestational age: 39 Weeks and 5 Days Date of Procedure: 03/21/19 Pre-Operative Diagnosis: labor Post-Operative Diagnosis: same Surgery/ Procedure Performed: Spontaneous Vaginal Delivery Type of Anesthesia: Epidural Description of Procedure: A vigorous female was delivered OA over intact perineum. The remainder the was delivered with maternal pushing and gentle traction only in less than 15 seconds. The Pitocin infusion was initiated for active management of the third stage. The cord was clamped and cut after the placenta delivered and pulsation had ceased at the patient's request. The infant was attended to by the waiting nursing staff. The placenta was delivered spontaneously and intact. The cervix and vagina were intact. Sponge and needle counts were correct. A vaginal sweep was completed by me. Presentation: KELLI Placental Delivery Description: Spontaneous Placenta Disposition: [facility] Cord Vessel Description: 3 Vessels Cord Entanglement: None Drain: [place] to straight drain Estimated Blood Loss: 200 Infant A gender: Female (1 minute): 8 (5 minute): 9 Episiotomy Description: None Laceration: None Medications given after delivery: IV Pitocin Complications: None
[2019-03-21 22:25] VITALS: BP 124/67; PULSE 115; RESP 18; TEMP 37.5; O2SAT 98
[2019-03-21] MEDS: 0.9% Saline Lock 10 ML Syringe IV (23:40)
[2019-03-21 23:45] VITALS: BP 118/67; PULSE 107; RESP 16; TEMP 37.2
[2019-03-22 04:00] VITALS: BP 115/65; PULSE 94; RESP 16; TEMP 37.2
[2019-03-22 08:15] VITALS: BP 113/70; PULSE 80; RESP 16; TEMP 36.7; O2SAT 99
--- NOTE | 2019-03-22 08:22 | PCM.PN.OB ---
Subjective: Pain well controlled. Average lochia. - Physical Exam Vitals/I&O's: Vital Signs Temp Pulse Resp BP Pulse Ox 98.9 F 94 16 115/65 98 03/22/19 04:00 03/22/19 04:00 03/22/19 04:00 03/22/19 04:00 03/21/19 22:25 Oxygen Delivery Method Room Air Weight: 98.7 kg Body Mass Index (BMI) 37.3 Intake and Output for Last 24 Hours 03/20/19 03/21/19 03/22/19 23:59 23:59 23:59 Intake Total 7201.26 / 7201.26 Output Total 2800 / 2800 1800 / 1800 Balance 4401.26 / 4401.26 -1800 / -1800 General: Alert, Cooperative, No apparent distress Current Medications Acetaminophen (Tylenol) 1,000 mg PO Q8H PRN PRN PRN Reason: Pain Score 1-3/10 Bisacodyl (Dulcolax) 10 mg RECTAL UD PRN PRN Reason: If no BM Dibucaine (Dibucaine) 1 applic TOPICAL TID PRN PRN; Protocol PRN Reason: Discomfort Hydrocortisone (Hytone) 1 applic TOPICAL TID PRN PRN; Protocol PRN Reason: Discomfort Methylergonovine Maleate (Methergine) 0.2 mg IM X1 PRN PRN Reason: Excess bleeding/uterine atony Naproxen (Naprosyn) 500 mg PO Q8H PRN PRN PRN Reason: Pain Score 1-3/10 Ondansetron HCl (Zofran) 4 mg IV Q4H PRN PRN PRN Reason: Nausea Senna/Docusate Sodium (Senokot-S, Amrita-Colace) 1 - 2 tablet PO DAILY PRN PRN PRN Reason: Constipation Simethicone (Mylicon) 80 mg PO PCHS PRN PRN Reason: Indigestion/Stomach pain Sodium Chloride () 5 - 15 ml IV UD PRN PRN Reason: SALINE FLUSH Last Admin: 03/21/19 23:40 Dose: 10 ml Documented by: Medical Necessity - Tobacco Use Smoking Status: Former smoker Assessment/Plan All Active Problems (Last Updated 03/21/19 @ 08:15 by Fozia Concepcion) 37 weeks gestation of (Acute) Breech presentation (Acute) Multiparity (Acute) day #1 status post vaginal delivery. Patient is doing well. is feeding and doing well. Desires discharge home after 24 hours if okay with pediatrics.
--- NOTE | 2019-03-22 08:23 | DCINST_ITS ---
Discharge Diet: No Restrictions Discharge Activity: Return to Normal Activity, May not drive while taking narcotic pain medications., May Shower May resume sexual activity in: 4-6 weeks Additional Activity Instructions:: Nothing in the vagina for 4-6 weeks. You may return to work/school in 6 weeks. Call your doctor if your incision/area has: Continuous Slow Oozing, Sudden Increased Bleeding, Increased Pain/ Swelling, Increased Redness, Foul Smelling Discharge Additional Instructions: If you experience any of the following, contact your healthcare provider. * Bleeding that soaks a pad every hour for 2 hours * Fever 100.4 or higher * Unrelieved incision or abdominal pain * Swelling, redness, discharge or bleeding from your incision or episiotomy site * Your incision begins to separate * Problems urinating (including inability to urinate or burning while urinating). * Visual changes * Severe headache * Flu-like symptoms * Pain or redness in one of both of your breasts * Pain, warmth, tenderness or swelling in your legs, especially the calf area * Frequent nausea and vomiting * Symptoms of depression or anxiety If you experience any of the following, call 911 or go to the nearest Emergency Room. * Chest pain * Problems breathing * Seizure activity * Partial or complete paralysis of a body part, slurred speech, weakness or drooping of the face, or a sudden inability to walk or hold your balance Allergies/Adverse Reactions: Allergies hydrocodone bitartrate [From Vicodin] Adverse Reaction (Verified 03/21/19 07:56) Nausea Medications to take at Discharge Vits [Prenatabs FA] 1 tab PO DAILY 09/04/18 Ibuprofen [Motrin] 800 mg PO TID PRN PRN #60 tab 03/22/19 The following prescriptions were given: Ibuprofen [Motrin] 800 mg PO TID PRN PRN #60 tab PRN Reason: Pain Transmission Status: Pending to [facility] Please Follow Up With: Fozia Concepcion - [phone] When: Call to make an appointment with our office in 1-2 and 6 weeks or as needed Primary Care Physician: Rick Asencio MD [Primary Care Provider] - Test Results: Test results from this visit will be discussed in further detail at your follow- up appointment, if applicable.
--- NOTE | 2019-03-22 08:23 | PCM.DCVAG ---
Discharge Diet: No Restrictions Discharge Activity: Return to Normal Activity, May not drive while taking narcotic pain medications., May Shower May resume sexual activity in: 4-6 weeks Additional Activity Instructions:: Nothing in the vagina for 4-6 weeks. You may return to work/school in 6 weeks. Call your doctor if your incision/area has: Continuous Slow Oozing, Sudden Increased Bleeding, Increased Pain/ Swelling, Increased Redness, Foul Smelling Discharge Additional Instructions: If you experience any of the following, contact your healthcare provider. Bleeding that soaks a pad every hour for 2 hours Fever 100.4 or higher Unrelieved incision or abdominal pain Swelling, redness, discharge or bleeding from your incision or episiotomy site Your incision begins to separate Problems urinating (including inability to urinate or burning while urinating). Visual changes Severe headache Flu-like symptoms Pain or redness in one of both of your breasts Pain, warmth, tenderness or swelling in your legs, especially the calf area Frequent nausea and vomiting Symptoms of depression or anxiety If you experience any of the following, call 911 or go to the nearest Emergency Room. Chest pain Problems breathing Seizure activity Partial or complete paralysis of a body part, slurred speech, weakness or drooping of the face, or a sudden inability to walk or hold your balance Allergies/Adverse Reactions: Allergies hydrocodone bitartrate [From Vicodin] Adverse Reaction (Verified 03/21/19 07:56) Nausea Medications to take at Discharge Vits [Prenatabs FA] 1 tab PO DAILY 09/04/18 Ibuprofen [Motrin] 800 mg PO TID PRN PRN #60 tab 03/22/19 The following prescriptions were given: Ibuprofen [Motrin] 800 mg PO TID PRN PRN #60 tab PRN Reason: Pain Transmission Status: Pending to [facility] Please Follow Up With: Fozia Concepcion - [phone] When: Call to make an appointment with our office in 1-2 and 6 weeks or as needed Primary Care Physician: Rick Asencio MD [Primary Care Provider] - Test Results: Test results from this visit will be discussed in further detail at your follow-up appointment, if applicable.
--- NOTE | 2019-03-22 10:14 | NURSING ---
Shilpa from case management notified of pt needing to be seen prior to discharge today at 2044.
[2019-03-22] MEDS: Naproxen 250 MG Tablet 500 MG PO (12:11)
[2019-03-22 12:14] VITALS: BP 146/81; PULSE 73; RESP 22; TEMP 36.7
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
[2019-03-22] MEDS: Acetaminophen 500 MG Tablet 1000 MG PO (14:52)
[2019-03-22 16:15] VITALS: BP 117/68; PULSE 82; RESP 18; TEMP 36.6; O2SAT 99
[2019-03-22 20:59] VITALS: BP 132/82; PULSE 76; TEMP 36.6
== END 2019-03-22 22:20 | disposition home or self-care (01) | DRG 560 ==
PROVIDERS: Admitting Provider Obstetrics & Gynecology; PCP Family Medicine; Referring Provider Obstetrics & Gynecology; Visit Provider Obstetrics & Gynecology
PROC: 3E033VJ Introduction of Other Hormone into Peripheral Vein, Percutaneous Approach (ICD-10-PCS; CPT 59514; principal; 2019-03-21 07:15)
DX: O32.0XX0 Maternal care for unstable lie, not applicable or unspecified (principal); O76 Abnormality in fetal heart rate and rhythm complicating labor and delivery; Z3A.39 39 weeks gestation of pregnancy; Z37.0 Single live birth; Z87.891 Personal history of nicotine dependence
CPT/HCPCS: 59025; 59050; 85025; 86850; 86900; 86901; 99218; J7120; A4216; G0378; J2405

== ENCOUNTER 2021-02-11 14:45 | Emergency (ER) | payer MEDICAID, SELFPAY ==
[2021-02-11 14:46] VITALS: BP 129/64; PULSE 101; RESP 17; TEMP 36.1; O2SAT 98; BMI 36.6
[2021-02-11 15:50] VITALS: BP 115/82; PULSE 82; RESP 16; O2SAT 98
[2021-02-11 15:53] VITALS: BMI 36.6
--- NOTE | 2021-02-11 15:53 | EKG12_ITS ---
Test Reason : NEURO Blood Pressure : / mmHG Vent. Rate : 080 BPM Atrial Rate : 080 BPM P-R Int : 148 ms QRS Dur : 082 ms QT Int : 372 ms P-R-T Axes : 039 059 024 degrees QTc Int : 429 ms Normal sinus rhythm with sinus arrhythmia Normal ECG Confirmed by CHRISTEL ZHANG, REDD ([id number]), associate entertainment editor SHANE MATAMOROS ([id number]) on 02/23/2021 10:39:10 AM Referred By: RICARDO Confirmed By:REDD KEARNEY MD
--- NOTE | 2021-02-11 15:53 | CT_ITS ---
STUDY: CT BRAIN WITHOUT CONTRAST REASON FOR EXAM: Female, 30 years old. Transient visual and speech loss RADIATION DOSAGE (If Supplied By Facility): CTDIvol = ( 44.99 ) mGy, DLP = ( 728.62 ) mGycm TECHNIQUE: Transaxial CT imaging of the brain was performed without administration of intravenous contrast material. Individualized dose optimization techniques were used for this CT. COMPARISON: No relevant priors. FINDINGS: Normal soft tissue structures. Normal calvarium. Normal size ventricles and extra-axial spaces for the patient''s age. Normal white matter tracts of the cerebral hemispheres. Normal basal ganglia and thalami. Normal brainstem. Normal cerebellum. There is no intracranial hemorrhage. There are no findings of an acute ischemic infarction. Normal visualized paranasal sinuses. CT/Brain/Head without Contrast IMPRESSION: Normal unenhanced CT scan of the brain. Electronically Signed: Keshawn Wheeler MD (Brooks) at 16:17 EST , Service support ,
--- NOTE | 2021-02-11 15:55 | TELEMED_ITS ---
[facility] has confirmed receipt of a request for visit. This document confirms receipt of the order initiating the consult. To find the results of the consultation, please view the patient's reports for the scanned Telemed Consult.
--- NOTE | 2021-02-11 15:58 | EDS_ITS ---
HPI History of Present Illness Chief Complaint: Neuro S/Sx Informant: patient Narrative Narrative: Patient presents after transient neurologic deficits that occurred yesterday. She was at work. She then developed a right-sided homonymous hemianopsia. This lasted for about 30 minutes. It resolved over 3 to 4-minute period. As it resolved she developed confusion and expressive and receptive aphasia. She states she really did not know anyone around her. She could not talk clearly. She was not understanding words. She thinks this lasted 2 or so hours. But, she drove herself home with this and went to bed and it was gone when she woke up later that evening. She was able to drive home without any difficulties. She never had symptoms in arms or legs or balance. After the symptoms resolved, she then started to get a headache on the left side of her head. It was worse last night. It is essentially gone now. She states if she talks a lot or moves [id number] quickly she will get a little headache on the left now. The neurologic symptoms are also completely resolved now. She does not have a history of migraines but her mother limits daily migraines. Patient had an episode like this that occurred somewhere between 3 to 6 months ago. She states it was exactly the same but it resolved in about half the time. Patient denies any chronic medical conditions other than back pain. No current medications Nausea with Vicodin but no allergy Surgery: Lumbar discectomy Former smoker, lives with family Works full-time. [facility] Medical History (Updated 02/11/21 @ 20:[address] Billy Chakraborty MD) Depression Former tobacco use History of heavy alcohol consumption Lumbar back pain with radiculopathy affecting right lower extremity Multiparity Sinus tachycardia seen on desk monitor Home Medications vit,[id number] 1 tab PO DAILY 09/04/18 [History Last Taken 03/20/19] ibuprofen 800 mg PO TID PRN PRN #60 tab 03/22/19 [Rx Last Taken Unknown] Allergy/AdvReac Type Severity Reaction Status Date / Time hydrocodone bitartrate AdvReac Nausea Verified 02/11/21 14:50 [From Vicodin] Family History (Updated 02/11/21 @ 18:[address] Samantha Barker MD) Mother Anxiety and depression Father Diabetes HLD (hyperlipidemia) Surgical History (Updated 02/11/21 @ 18:[address] Samantha Barker MD) History of back surgery Social History (Updated 02/11/21 @ 18:[address] Smaantha Barker MD) housing: other details: Her significant other, her 12 year old and 1.5 year old. Smoking Status: Former smoker how long ago did patient quit smoking: Quit 5 years prior, smoked cigars (5 per pack, 1.5/day when smoking). alcohol intake: former details: Drank heavily prior, stopped 10 years ago, none currently with . substance use type: does not use ROS ROS ED Constitutional Constitutional ED: Denies chills or fever(s) Eyes Eyes: Reports change in vision and other Details: See history of present illness ENT ENT ED: Denies rhinorrhea Cardiovascular Cardiovascular: Denies chest pain or palpitations Respiratory/Chest Respiratory/Chest: Denies cough or dyspnea Gastrointestinal Gastrointestinal: Denies abdominal pain, nausea or vomiting Genitourinary Genitourinary ED: Denies dysuria Musculoskeletal Musculoskeletal: Denies arthralgias, back pain, myalgias or neck pain Integumentary Denies abscess, Abrasions or rash Neurologic Neurologic: Reports headache(s) and other Details: See history of present illness. ; Denies paresthesias or weakness Psychiatric Psychiatric: Denies anxiety or depression Endocrine Endocrinology: Denies polydipsia or polyuria Allergic/Immunologic Allergic/Immunologic ED: Denies mouth swelling, tongue swelling or urticaria EXAM Physical Exam Const Vital Signs: 02/11/21 14:46 02/11/21 15:35 02/11/21 15:50 Temperature 97 F L Temperature Source Temporal Pulse Rate 101 H 82 Respiratory Rate 17 16 Respiratory Effort Normal Non-Labored Respiratory Pattern Normal Blood Pressure 129/64 H 115/82 H Blood Pressure Mean 85 93 Pulse Ox 98 98 Oxygen Delivery Method Room Air Room Air 02/11/21 16:00 02/11/21 17:06 02/11/21 18:00 Temperature Temperature Source Pulse Rate 86 81 80 Respiratory Rate 17 16 16 Respiratory Effort Respiratory Pattern Blood Pressure 109/73 121/82 H 116/80 Blood Pressure Mean 85 95 92 Pulse Ox 97 98 96 Oxygen Delivery Method Room Air Room Air Room Air 02/11/21 19:00 Temperature Temperature Source Pulse Rate 88 Respiratory Rate 18 Respiratory Effort Respiratory Pattern Blood Pressure 92/62 Blood Pressure Mean 72 Pulse Ox 99 Oxygen Delivery Method Room Air Positive well nourished and well developed General Appearance ED: well developed and NAD; Negative for cyanotic or diaphoretic HEENT Reports moist mucous membranes Eyes PERRL and EOMs intact bilaterally Eyes Narrative: No range of motion abnormalities. Pupils are normal. No photophobia. Exam is really normal at this time. No proptosis. General Eye ED: Negative for pale conjunctiva or scleral icterus Neck no lymphadenopathy, supple and no JVD Chest Wall inspection of chest normal Resp normal respiratory effort and clear to auscultation bilaterally Cardio regular rate and regular rhythm GI non-tender GI Narrative: Gravid but benign. Palpation: soft Extremity normal to inspection General Extremety ED: Negative for edema or tenderness General Extremity: Negative for edema Neuro oriented x3, CN's II-XII intact bilaterally and no sensory deficits noted Neuro Narrative: Patient has an NIH stroke scale of 0 at this time. Sensorium / Orientation: alert; Negative for orientation impaired, lethargic or stuporous Sensory Exam: No sensory level loss detected Motor Exam: strength 5/5 throughout; Negative for general weakness or strength abnormal Psych mental status grossly normal Skin no rashes or lesions noted and no wounds MDM MDM MDM Narrative Medical decision making narrative: Patient's blood work and labs show no marked abnormalities. CT showed no acute process. [facility] neurology was consulted. They recommended admission and further work-up. They thought it is certainly possible she could have migraines but because of her specific neurologic deficits reported she does warrant further evaluation. I discussed this with the hospitalist. I then discussed this with SKIN DIVING TEACHER. We then called back neurology because they had mentioned in person consultation. I then talked to a different neurologist, Anjana Morgan. She reviewed the report and the history. She states it is okay for the patient to stay here and have teleneurology consult. I recontacted hospitalist and SKIN DIVING TEACHER. Patient was being admitted. I was then told that the patient decided to walk out. She was not available in the facility. Lab Data Attestation: I reviewed the patient's lab results. Labs: Laboratory Results - last 24 hr 02/11/21 02/11/21 02/11/21 15:01 15:01 15:01 WBC 10.7 RBC 4.13 L Hgb 11.7 L Hct 35.7 L MCV 86.4 MCH 28.3 MCHC 32.8 RDW Std Deviation 41.5 RDW Coeff of Em 13.2 Plt Count 371 MPV 10.0 Immature Gran % (Auto) 0.500 Neut % (Auto) 74.0 H Lymph % (Auto) 18.6 L Flagler % (Auto) 5.9 Eos % (Auto) 0.7 Baso % (Auto) 0.3 Absolute Neuts (auto) 7.9 H Absolute Lymphs (auto) 1.99 Nucleated RBC % 0 ESR 32 H PT INR APTT Sodium 138 Potassium 3.6 Chloride 109 H Carbon Dioxide 22.0 Anion Gap 7 BUN 6 L Creatinine 0.52 L Estim Creat Clear Calc 136.60 Est GFR (MDRD) Af Amer 175 Est GFR (MDRD) Non-Af 145 BUN/Creatinine Ratio 11.4 Glucose 117 H Calcium 9.1 Magnesium Total Bilirubin 0.30 AST 11 L ALT 20 Alkaline Phosphatase 89 C-React Prot Ext Range Total Protein 6.8 Albumin 2.7 L Globulin 4.1 Albumin/Globulin Ratio 0.7 L 02/11/21 02/11/21 15:01 16:23 WBC RBC Hgb Hct MCV MCH MCHC RDW Std Deviation RDW Coeff of Em Plt Count MPV Immature Gran % (Auto) Neut % (Auto) Lymph % (Auto) Flagler % (Auto) Eos % (Auto) Baso % (Auto) Absolute Neuts (auto) Absolute Lymphs (auto) Nucleated RBC % ESR PT 12.4 INR 1.0 APTT 28.0 Sodium Potassium Chloride Carbon Dioxide Anion Gap BUN Creatinine Estim Creat Clear Calc Est GFR (MDRD) Af Amer Est GFR (MDRD) Non-Af BUN/Creatinine Ratio Glucose Calcium Magnesium 1.9 Total Bilirubin AST ALT Alkaline Phosphatase C-React Prot Ext Range < 2.90 Total Protein Albumin Globulin Albumin/Globulin Ratio Radiography Diagnostic Testing: Clinical Impression(s) from Imaging Studies Brain CT 02/11/21 15:53 IMPRESSION: Normal unenhanced CT scan of the brain. Electronically Signed: Keshawn Wheeler MD (Bro[place]) at 16:17 EST , Service support , EKG Initial EKG: Comments: EKG done for possible dysrhythmia read by me shows normal sinus rhythm with slight sinus arrhythmia which is normal variant for a young person. No ectopy. No acute ST elevation or depression. CA interval, QRS duration, QTc are all normal. Discharge Plan Triage Chief Complaint: Neuro S/Sx ED Provider: Billy Chakraborty Dx/Rx/DC Orders Clinical Impression: Transient neurologic deficit, History of headache, Eloped from emergency department Primary Care Provider: Rick Asencio Disposition Disposition: Against Medical Advice Discharge Date/Time: 02/11/21 20:11
[2021-02-11 16:00] VITALS: BP 109/73; PULSE 86; RESP 17; O2SAT 97
--- NOTE | 2021-02-11 16:01 | NURSING ---
BLUE TOP QNS
[2021-02-11 16:09] LABS: Absolute Lymphocyte Count 1.99 X10^3/uL (0.83-4.51); Absolute Neutrophil Count 7.9 X10^3/uL (2.0-7.7); Basophil# 0.03 X10^3/uL; Basophil% 0.3 % (0-1); Eosinophil# 0.08 X10^3/uL; Eosinophils% 0.7 % (0-5); Hematocrit 35.7 % (37-47); Hemoglobin 11.7 g/dL (12.0-15.0); Lymphocyte # 1.99 X10^3/ul (0.83-4.51); Lymphocyte % 18.6 % (19-41); Mean Corp Hgb Conc 32.8 g/dL (32-36); Mean Corpuscular Hgb 28.3 pg (27.0-32.0); Mean Corpuscular Volume 86.4 fL (81-99); Monocyte# 0.63 X10^3/uL; Monocyte% 5.9 % (0-10); NRBC Flagged by Analyzer 0 % (0-5); Neutrophil # 7.94 X10^3/uL (2.7-7.7); Platelet Count 371 K/mm3 (150-450); RBC Distribution Width CV 13.2 % (11.6-14.6); RBC Distribution Width SD 41.5 fl (35.1-43.9); Red Blood Count 4.13 M/mm3 (4.2-5.4); White Blood Count 10.7 K/mm3 (4.4-11.0)
[2021-02-11 16:17] LABS: ALB/GLOB Ratio 0.7 RATIO (0.9-2.4); AST(SGOT) 11 U/L (15-37); Alanine Aminotransfer ALT/SGPT 20 U/L (13-56); Albumin, Serum 2.7 g/dL (3.2-5.0); Alkaline Phosphatase 89 U/L (45-117); Anion Gap 7 (5-15); BUN 6 mg/dL (7-18); BUN/Creat Ratio 11.4 RATIO (10-20); Calcium,Total 9.1 mg/dL (8.5-10.1); Chloride 109 mmol/L (98-107); Creatinine, Serum 0.52 mg/dL (0.55-1.02); EST Glomerular Filtration Rate 145 mL/min (>60); Est Glom Filt Rate - Afr Amer 175 mL/min (>60); Globulin 4.1 g/dL (2.2-4.2); Glucose 117 mg/dL (74-106); Potassium 3.6 mmol/L (3.5-5.1); Protein, Total 6.8 g/dL (6.4-8.2); Sodium Level 138 mmol/L (136-145)
[2021-02-11 16:43] LABS: Prothrombin Time (Protime)PT. 12.4 SECONDS (11.7-14.9)
[2021-02-11 17:06] VITALS: BP 121/82; PULSE 81; RESP 16; O2SAT 98
--- NOTE | 2021-02-11 17:40 | NURSING ---
DR BRENNAN FOR DR SILVA
[2021-02-11 18:00] VITALS: BP 116/80; PULSE 80; RESP 16; O2SAT 96
--- NOTE | 2021-02-11 18:05 | NURSING ---
CALLED [facility], TALKED TO YORDY. SHE TOOK ALL THE INFO AND WILL HAVE A DOCTOR CALL US BACK. SHE OPENED A NEW TICKET
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
[2021-02-11 19:00] VITALS: BP 92/62; PULSE 88; RESP 18; O2SAT 99
[2021-02-11] MEDS: 0.9% Normal Saline 1,000 ML 100 ML IV (19:11)
[2021-02-11 19:54] LABS: Erythrocyte Sedimentation Rate 32 mm/hr (0-30)
--- NOTE | 2021-02-11 20:07 | ED.RN ---
PT WAS SEEN BY THIS RN FULLY DRESSED, LEAVING THE ROOM. THIS RN ASKED THE PATIENT WHAT WAS GOING ON, IF SHE WAS LEAVING. WHEN PREVIOUSLY IN THE ROOM THE PATIENT WAS NOTIFIED SHE WAS BEING CONSIDERED FOR AN ADMISSION TO THE HOSPITAL BUT WE WERE WAITING FOR THE PHYSICIAN TO HEAR BACK FROM THE NEUROLOGIST. PT STATES SHE PULLED HER OWN IV OUT WHICH WAS VISUALIZED IN THE ROOM AND SHE WAS NOT STAYING. THIS RN CALLED [facility] AND WAGON DRIVER SALESPERSON TO NOTIFY THEM PT LEFT AMA. THIS RN SPOKE WITH ALSO NOTIFYING HIM OF HER LEAVING.
[2021-02-11 20:08] LABS: Amphetamine Urine VISTA NEGATIVE (<1000 ng/mL); Barbiturate Urine VISTA NEGATIVE (< 200 ng/mL); Benzodiazepine Urine VISTA NEGATIVE (< 200 ng/mL); Cocaine Urine VISTA NEGATIVE (< 300 ng/mL); Ecstacy Urine VISTA NEGATIVE (< 500 ng/mL); Methadone Urine VISTA NEGATIVE (< 300 ng/mL); PCP Urine VISTA NEGATIVE (< 25 ng/mL); THC Urine VISTA NEGATIVE (< 50 ng/mL); Vista UDS pH Range 6
[2021-02-11 20:08] LABS: CRP < 2.90 mg/L (0.0-3.0); Magnesium 1.9 mg/dL (1.6-2.6)
--- NOTE | 2021-02-11 20:17 | NURSING ---
Call received from [employer] with update of pt leaving AMA. Jennifer MATIAS on unit and updated that pt left AMA-Jennifer BANDAM updated
== END 2021-02-11 20:11 | disposition left against medical advice (07) ==
LOC: ED 15:54
PROVIDERS: Family Medicine; Emergency Provider Emergency Medicine; PCP Family Medicine
DX: R29.818 Other symptoms and signs involving the nervous system (principal); Z87.891 Personal history of nicotine dependence
CPT/HCPCS: 70450; 80053; 80307; 83735; 85025; 85610; 85652; 85730; 86140; 87635; 93005; 99283; J7030; U0005; A4216; U0003

== ENCOUNTER 2021-04-06 06:50 | Inpatient (IN) | payer MEDICAID, SELFPAY ==
[2021-04-06] VITALS (47 sets, daily range): BP systolic 71–132; BP diastolic 33–78; PULSE 64–100; RESP 16–18; TEMP 36.1–37.1; O2SAT 97–100; BMI 37.8
[2021-04-06 06:33] LABS: Group B Strep DNA By PCR Negative (Negative); Internal Control PASS; Probe Check PASS; Specimen Processing Control PASS
[2021-04-06] MEDS: Lactated Ringers 1,000 ML 50 ML IV (07:20)
[2021-04-06] MEDS: Lactated Ringers 500 ML 999 ML IV ×2 (07:23→08:00)
[2021-04-06 07:34] LABS: BUP Internal Control LINE = VALID (VALID)
[2021-04-06 07:35] LABS: Absolute Lymphocyte Count 1.84 X10^3/uL (0.83-4.51); Absolute Neutrophil Count 9.5 X10^3/uL (2.0-7.7); Basophil# 0.02 X10^3/uL; Basophil% 0.2 % (0-1); Eosinophil# 0.01 X10^3/uL; Eosinophils% 0.1 % (0-5); Hematocrit 35.1 % (37-47); Lymphocyte # 1.84 X10^3/ul (0.83-4.51); Lymphocyte % 15.3 % (19-41); Mean Corp Hgb Conc 34.2 g/dL (32-36); Mean Corpuscular Hgb 28.8 pg (27.0-32.0); Mean Corpuscular Volume 84.4 fL (81-99); Mean Platelet Vol. 10.5 fl (6.2-12.0); Monocyte# 0.59 X10^3/uL; Monocyte% 4.9 % (0-10); NRBC Flagged by Analyzer 0 % (0-5); Neutrophil # 9.53 X10^3/uL (2.7-7.7); Neutrophil % 79.1 % (47-70); Platelet Count 379 K/mm3 (150-450); RBC Distribution Width CV 13.4 % (11.6-14.6); RBC Distribution Width SD 41.1 fl (35.1-43.9); Red Blood Count 4.16 M/mm3 (4.2-5.4)
[2021-04-06 07:35] LABS: Buprenorphine Drug Screen Negative (<10 ng/mL)
[2021-04-06 07:37] LABS: Amphetamine Urine VISTA NEGATIVE (<1000 ng/mL); Barbiturate Urine VISTA NEGATIVE (< 200 ng/mL); Benzodiazepine Urine VISTA NEGATIVE (< 200 ng/mL); Cocaine Urine VISTA NEGATIVE (< 300 ng/mL); Ecstacy Urine VISTA NEGATIVE (< 500 ng/mL); Methadone Urine VISTA NEGATIVE (< 300 ng/mL); PCP Urine VISTA NEGATIVE (< 25 ng/mL); THC Urine VISTA NEGATIVE (< 50 ng/mL); Vista UDS pH Range 5
[2021-04-06] MEDS: fentaNYL-bupivacaine (epidural) 100 ML BAG EPIDURAL (07:59)
--- NOTE | 2021-04-06 08:38 | PCM.HP.OB ---
HPI - General General Date of Admission: 04/06/21 HPI Narrative RICHARD REID, is a 31 F at 39.2 weeks gestation who presents in spontaneous labor. She started having contractions earlier in the night and they have continued and are more painful. complicated by insufficient care as she only was seen in office on 3 occasions. She has a history of COVID-19 on 02/15/21, history of anxiety, depression, PTSD and positive drug screen for marijuana at beginning of . She denies any loss of fluid or vaginal bleeding. GBS unknown. Maternal Data Information JERMAN Calculator Estimated Delivery Date Method Current WG Current Estimate 04/11/21 Manual 39w 2d PFSH PFSH Medical History (Updated 04/06/21 @ 14:44 by Carmen Cates CNM) Anxiety Depression Former tobacco use History of heavy alcohol consumption Lumbar back pain with radiculopathy affecting right lower extremity Multiparity depression Sinus tachycardia seen on surveillance system monitor Home Medications vit,[id number] 1 tab PO DAILY 09/04/18 [History Last Taken 03/16/21 06:00] Allergy/AdvReac Type Severity Reaction Status Date / Time hydrocodone bitartrate AdvReac Nausea Verified 02/11/21 14:50 [From Vicodin] Family History (Updated 02/11/21 @ 18:[address] Samantha Barker MD) Mother Anxiety and depression Father Diabetes HLD (hyperlipidemia) Surgical History History of back surgery Social History (Updated 02/11/21 @ 18:[address] Samantha Barker MD) housing: other details: Her significant other, her 12 year old and 1.5 year old. Smoking Status: Former smoker how long ago did patient quit smoking: Quit 5 years prior, smoked cigars (5 per pack, 1.5/day when smoking). alcohol intake: former details: Drank heavily prior, stopped 10 years ago, none currently with . substance use type: does not use History Elective abortions Hx Para 2 Spontaneous abortions Hx # Term Pregnancies Ectopic pregnancies Hx # Pregnancies Multiple births # of living children NST FHR Rate Baby A Baseline: 140 Variability:: Moderate Decelerations:: None NST Reactive:: Yes FHR Category:: Category I Uterine Activity:: 2-4 minutes ROS Eyes Eyes: Denies blurry vision, change in vision or spots in vision ENT HEENT: Denies dizziness or headache(s) Cardiovascular Cardiovascular: Denies abdominal pain, chest pain or dyspnea Respiratory/Chest Respiratory/Chest: Denies cough, dyspnea, shortness of breath at rest or shortness of breath with exertion Gastrointestinal Gastrointestinal: Denies abdominal pain, diarrhea or vomiting Genitourinary Genitourinary: Denies change in urinary stream, difficulty urinating or dysuria Musculoskeletal Musculoskeletal: Reports none Integumentary Integumentary: Denies rash Neurologic Neurologic: Denies dizziness, headache(s), memory loss or weakness Psychiatric Psychiatric: Reports none Vital Signs Vital Signs Vital Signs: 04/06/21 04:00 04/06/21 04:01 04/06/21 04:06 Temperature 97.3 F L Temperature Source Temporal Pulse Rate 97 86 Blood Pressure 132/75 H BP Systolic 132 BP Diastolic 75 Pulse Ox 97 04/06/21 07:25 04/06/21 07:50 04/06/21 07:54 Temperature 97.0 F L Temperature Source Pulse Rate 70 85 77 Blood Pressure 122/72 H 121/74 H BP Systolic 122 121 BP Diastolic 72 74 Pulse Ox 98 04/06/21 07:55 04/06/21 08:00 04/06/21 08:03 Temperature Temperature Source Pulse Rate 94 94 86 Blood Pressure 79/40 L 84/48 L BP Systolic 79 84 BP Diastolic 40 48 Pulse Ox 100 99 04/06/21 08:05 04/06/21 08:09 04/06/21 08:10 Temperature Temperature Source Pulse Rate 83 82 89 Blood Pressure 75/37 L 84/47 L BP Systolic 75 84 BP Diastolic 37 47 Pulse Ox 99 100 04/06/21 08:14 04/06/21 08:15 04/06/21 08:19 Temperature 97.1 F L Temperature Source Temporal Pulse Rate 78 77 76 Blood Pressure 86/45 L 77/36 L BP Systolic 86 77 BP Diastolic 45 36 Pulse Ox 99 04/06/21 08:20 04/06/21 08:24 04/06/21 08:25 Temperature Temperature Source Pulse Rate 69 76 77 Blood Pressure 71/33 L BP Systolic 71 BP Diastolic 33 Pulse Ox 100 99 04/06/21 08:29 04/06/21 08:30 04/06/21 08:35 Temperature Temperature Source Pulse Rate 66 65 Blood Pressure 83/46 L BP Systolic 83 BP Diastolic 46 Pulse Ox 100 100 04/06/21 08:36 04/06/21 08:39 04/06/21 08:40 Temperature Temperature Source Pulse Rate 67 65 97 Blood Pressure 85/46 L 81/41 L BP Systolic 85 81 BP Diastolic 46 41 Pulse Ox 99 04/06/21 08:45 04/06/21 08:50 04/06/21 08:54 Temperature Temperature Source Pulse Rate 88 71 81 Blood Pressure 97/53 L 113/65 BP Systolic 97 113 BP Diastolic 53 65 Pulse Ox 100 100 04/06/21 08:55 04/06/21 09:00 04/06/21 09:05 Temperature Temperature Source Pulse Rate 96 78 70 Blood Pressure 108/65 110/58 L BP Systolic 108 110 BP Diastolic 65 58 Pulse Ox 100 99 100 04/06/21 09:09 04/06/21 09:22 04/06/21 10:08 Temperature 97.1 F L 97.4 F L Temperature Source Temporal Temporal Pulse Rate 84 81 64 Blood Pressure 109/55 L 117/62 111/58 L BP Systolic 109 117 111 BP Diastolic 55 62 58 Pulse Ox 100 04/06/21 11:13 04/06/21 11:28 04/06/21 11:43 Temperature Temperature Source Pulse Rate 85 93 82 Blood Pressure 109/64 113/59 L 111/58 L BP Systolic 109 113 111 BP Diastolic 64 59 58 Pulse Ox 04/06/21 11:58 04/06/21 12:13 04/06/21 12:28 Temperature Temperature Source Pulse Rate 77 80 73 Blood Pressure 121/66 H 122/72 H 126/67 H BP Systolic 121 122 126 BP Diastolic 66 72 67 Pulse Ox 04/06/21 12:43 04/06/21 12:58 04/06/21 13:13 Temperature 98.2 F 98.2 F Temperature Source Temporal Temporal Pulse Rate 77 71 72 Blood Pressure 126/68 H 119/62 129/72 H BP Systolic 126 119 129 BP Diastolic 68 62 72 Pulse Ox Weight Weight: 220 lb 0.4 oz Body Mass Index (BMI) 37.8 Physical Exam Const alert, oriented x3 and no apparent distress General Appearance: cooperative Orientation / Consciousness: awake Exam Limitations: no limitations HEENT normocephalic Head and Scalp: normal to inspection Eyes General Eye: normal appearance of both eyes Neck full ROM and no lymphadenopathy Lymph Lymphatic: no lymphadenopathy noted Chest inspection of chest normal Resp normal respiratory effort, normal air movement and clear to auscultation bilaterally Effort and Inspection: able to speak in complete sentences and symmetric chest movement Cardio regular rate and regular rhythm GI normal to inspection, nondistended, normoactive bowel sounds Manual OB Exam: presentation cephalic, dilated 4, effaced 80 and station 0 Amniotic Fluid: clear amniotic fluid Back/Spine normal ROM Extremity full ROM and no calf tenderness Skin no rashes or lesions noted General Skin Exam: no breakdown Neuro oriented x3 and CN's II-XII intact bilaterally Psych mental status grossly normal and thought process normal Labs Labs Labs: Blood Type O POSITIVE Antibody Screen NEGATIVE Hct 35.1 % (37-47) L Hgb 12.0 g/dL (12.0-15.0) Obstetrics US Group B Strep DNA Negative (Negative) Rhogam given: No Rubella - immune HB- neg HC- neg HIV-NR RPR- NR Assessment & Plan (1) care insufficient: QUALIFIERS: Trimester: unspecified trimester Qualified Code(s): O09.30 - Supervision of with insufficient care, unspecified trimester (2) Spontaneous onset of labor: (3) 39 weeks gestation of : PLAN: Admitted to labor and delivery for spontaneous onset of labor Cat. 1 tracing, NST reactive CE /-2 Start IV and fluids per orders Routine labs Rapid GBS - negative Epidural when indicated Anticipate Dr. Florez notified and is collaborating physician
[2021-04-06] MEDS: Oxytocin 30 units/NS 500 ml 30 UNITS/500 ML IV.SOLN 334 UNITS IV (11:05)
--- NOTE | 2021-04-06 11:14 | EX.PCM.OBRPT ---
Assessment & Plan (1) 39 weeks gestation of : (2) Spontaneous onset of labor: (3) care insufficient: (4) (spontaneous vaginal delivery): Maternal Data Information JERMAN Calculator Estimated Delivery Date Method Current WG Current Estimate 04/11/21 Manual 39w 2d Vaginal Delivery Maternal Presentation Maternal Presentation: Patient is a at 39.2 weeks gestation that presented in spontaneous labor. Operative Information Date of Procedure: 04/06/21 Pre-Operative Diagnosis: Term gestation, Spontaneous labor Post-Operative Diagnosis: Same, live male infant Surgery / Procedure Performed: Spontaneous Vaginal Delivery Type of Anesthesia: Epidural Drain: [place] to straight drain Estimated Blood Loss: 200 Time of Delivery: 13:01 Findings Description of Procedure: Called to hospital for delivery. Arrived to patient's room. Complete dilation and +2 position. With minimal maternal effort, head was delivered. FOB assisted ( placing hands over mine) with delivery of anterior then posterior shoulder followed immediately by remainder of infant. Vigorous male placed on maternal abdomen and attended to by nursing staff. Pitocin IV started for active management of the third stage of labor. 3 vessel cord clamped and cut after delay by FOB. Cord blood collected and sent. Placenta delivered via Reyes spontaneously and intact. Fundus firm 2 below U. Lochia minimal. Vagina and perineum intact. Vaginal sweep completed by me. Hemostasis obtained. Patient and infant bonding well at this time. Dr. Florez notified of delivery. Presentation: Vertex Amniotic Membrane Rupture Type: Artificial Time of Membrane Rupture: 08 Amniotic Fluid Description: Clear Placental Delivery Description: Spontaneous Placenta Disposition: [facility] Cord Vessel Description: 3 Vessels Cord Entanglement: None Infant A Gender: Male (1 minute): 8 (5 minute): 9 Delayed Cord Clamping: Yes Post Vaginal Delivery Medications Given After Delivery: IV Pitocin Episiotomy Description: None Laceration: None Complication Complications: None
--- NOTE | 2021-04-06 16:16 | NURSING ---
Report given to Twila Brownlee RN who will assume care at this time.
[2021-04-06] MEDS: Naproxen 500 MG Tablet PO (20:18)
[2021-04-07 03:03] VITALS: BP 124/81; PULSE 76; PULSE 80; RESP 18; TEMP 36.3
[2021-04-07] MEDS: Acetaminophen 500 MG Tablet 1000 MG PO (03:08)
[2021-04-07 07:33] VITALS: BP 120/75; PULSE 73
[2021-04-07 07:47] VITALS: BP 120/75; PULSE 73; RESP 16; TEMP 36.7
--- NOTE | 2021-04-07 08:32 | PN.OBGYN_ITS ---
Subjective Subjective Doing well per patient and nursing staff. Ambulating and taking PO without difficulty. Voiding and passing flatus. Pain controlled. , services for assistance. Denies headache, visual changes, chest pain, shortness of breath, leg pain or increased bleeding. Lochia normal. Objective Data Objective Data Vital Signs: Vital Signs Temp Pulse Resp BP Pulse Ox 98.0 F 73 16 120/75 100 04/07/21 07:47 04/07/21 07:47 04/07/21 07:47 04/07/21 07:47 04/06/21 10:08 Oxygen Delivery Method Room Air Weight: 220 lb 0.4 oz Body Mass Index (BMI) 37.8 Intake & Output: Intake and Output for Last 24 Hours 04/05/21 04/06/21 04/07/21 23:59 23:59 23:59 Intake Total 2328.78 / 2328.78 Output Total 1750 / 1750 Balance 578.78 / 578.78 Lab / Micro Data Result Diagrams: 04/06/21 04:18 Labs: Laboratory Results - last 24 hr 04/06/21 04:18: Blood Type O POSITIVE, Antibody Screen NEGATIVE Micro: Microbiology 04/06/21 07:00 Nasal Secretion SARS-CoV-2 Antigen (Rapid) - Final ROS Constitutional Constitutional: Reports systems reviewed and no addt'l complaints, except as documented; Denies headache(s) Eyes Eyes: Denies acute decrease in peripheral vision, blurry vision or change in vision ENT HEENT: Reports systems reviewed and no addt'l complaints, except as documented Cardiovascular Cardiovascular: Denies chest pain or dizziness Respiratory/Chest Respiratory/Chest: Denies cough, dyspnea, dyspnea on exertion, shortness of breath at rest or shortness of breath with exertion Gastrointestinal Gastrointestinal: Denies abdominal pain, diarrhea, nausea or vomiting Genitourinary Genitourinary: Denies abdominal discomfort Musculoskeletal Musculoskeletal: Denies limited range of motion Integumentary Integumentary: Reports systems reviewed and no addt'l complaints, except as documented Neurologic Neurologic: Reports systems reviewed and no addt'l complaints, except as doc umented Psychiatric Psychiatric: Reports systems reviewed and no addt'l complaints, except as documented Endocrine Endocrinology: Reports systems reviewed and no addt'l complaints, except as documented Hematologic/Lymphatic Hematologic/Lymphatic: Reports systems reviewed and no addt'l complaints, except as documented Allergic/Immunologic Allergic/Immunologic: Reports systems reviewed and no addt'l complaints, except as documented Physical Exam Const alert and oriented x3 General Appearance: cooperative Orientation / Consciousness: awake, oriented to person, oriented to place and oriented to time Exam Limitations: no limitations HEENT normocephalic Head and Scalp: normal to inspection, normocephalic and atraumatic Face and Sinus: normal facial exam Eyes General Eye: normal appearance of both eyes Neck full ROM Chest Chest: symmetrical chest wall rise Resp normal respiratory effort and normal air movement Auscultation: clear to auscultation bilaterally Cardio regular rate, regular rhythm, S1 normal heart sound, S2 normal heart sound, no murmurs, no rub, no gallops and no clicks GI normal to inspection, nondistended, normoactive bowel sounds and non-tender GI Narrative: Fundus firm 3 below U appearance of the vagina normal Bladder / Kidney Exam: no CVA tenderness Back/Spine normal ROM Extremity normal to inspection and full ROM Skin no rashes or lesions noted Neuro oriented x3, CN's II-XII intact bilaterally and moves all extremities Sensorium / Orientation: awake, alert and oriented to person Motor Exam: clonus absent Deep Tendon Reflexes: Rt Patellar (L4): 2+ and Lt Patellar (L4): 2+ Assessment & Plan (1) Depression: (2) Anxiety: (3) (spontaneous vaginal delivery): PLAN: 1) Routine PP Care. 2) VSS 3) Pain management. Declines pain medication prescription 4) Follow up in 2 weeks and 6 weeks for PP visit
--- NOTE | 2021-04-07 08:35 | DS.PCM_ITS ---
Providers Date of Admission: 04/06/21 Primary Care Physician: Dr. Rick Asencio MD Reason For Visit: VAGINAL DELIVERY Diagnosis Discharge Diagnosis (1) Depression: Status: Acute Code(s): F32.9 - Major depressive disorder, single episode, unspecified (2) Anxiety: Status: Acute Code(s): F41.9 - Anxiety disorder, unspecified (3) (spontaneous vaginal delivery): Status: Acute Code(s): O80 - Encounter for full-term uncomplicated delivery Medications at Discharge Home Medications vit,[id number] 1 tab PO DAILY 09/04/18 acetaminophen 1,000 mg PO Q6H PRN PRN #0 tab 04/07/21 benzocaine-menthol [Dermoplast (with menthol)] 1 spray TOPICAL TID PRN PRN #0 g 04/07/21 hydrocortisone 1 applic TOPICAL TID PRN PRN #0 g 04/07/21 naproxen 500 mg PO Q8H PRN PRN #0 tab 04/07/21 Weight / BMI Weight Weight: 220 lb 0.4 oz Body Mass Index (BMI) 37.8 ABG / Lab / Microbiology Data Result Diagrams: 04/06/21 04:18 Laboratory: Laboratory Results - last 24 hr 04/06/21 04:18: Blood Type O POSITIVE, Antibody Screen NEGATIVE Microbiology: Microbiology 04/06/21 07:00 Nasal Secretion SARS-CoV-2 Antigen (Rapid) - Final Meaningful Use Info Meaningful Use Diagnoses (Choose all that apply): None applicable Discharge Plan Admission Admit Date/Time: 04/06/21 06:50 Primary Reason for Your Visit: Vaginal Delivery Attending Provider: Carmen Cates Primary Care Provider: Rick Asencio Discharge Orders/Prescriptions Prescriptions: New naproxen 500 mg Tablet 500 mg PO Q8H PRN PRN (Reason: Pain Score 1-3) Qty: 0 RF: 0 Dermoplast (with menthol) 20-0.5 % Aerosol 1 spray topical TID PRN PRN (Reason: perineal discomfort) Qty: 0 RF: 0 acetaminophen 500 mg Tablet 1,000 mg PO Q6H PRN PRN (Reason: Pain 1-10 Or Fever) Qty: 0 RF: 0 hydrocortisone 2.5 % Cream 1 applic topical TID PRN PRN (Reason: Discomfort) Qty: 0 RF: 0 Continued vit,[id number] 1 TABLET tablet 1 tab PO DAILY RF: 0 Referrals / Follow Up: Rick Asencio MD [Primary Care Provider] - Carmen Cates CNM [Certified Nurse [employer]] - (2 weeks for virtual visit and 6 weeks in office) Disposition Disposition (needs filled in before D/C Order can be placed): Home, Self Care
[2021-04-07] MEDS: Senna/Docusate Sodium 1 Tablet PO (11:05)
[2021-04-07 14:22] VITALS: BP 127/89; PULSE 71; RESP 20; TEMP 36.3
--- NOTE | 2021-04-07 14:24 | NURSING ---
ileana, was in and seen pt and pt is cleared for discharged.
== END 2021-04-07 14:40 | disposition home or self-care (01) | DRG 560 ==
LOC: WPOUT 06:55 → WP 06:55
PROVIDERS: Obstetrics & Gynecology; Admitting Provider Advanced Practice Midwife; PCP Family Medicine; Visit Provider Advanced Practice Midwife
DX: O99.344 Other mental disorders complicating childbirth (principal); Z37.0 Single live birth; F32.9 Major depressive disorder, single episode, unspecified; F41.9 Anxiety disorder, unspecified; Z87.891 Personal history of nicotine dependence; Z3A.39 39 weeks gestation of pregnancy; Z86.16 Personal history of COVID-19
CPT/HCPCS: 59025; 59050; 80307; 85025; 86850; 86900; 86901; 87081; 87426; 87653; 99218; J7120; G0378

== ENCOUNTER 2023-02-09 02:35 | Emergency (ER) | payer MEDICAID, SELFPAY ==
[2023-02-09 02:35] VITALS: BP 120/81; PULSE 96; RESP 17; TEMP 36.2; O2SAT 98; BMI 33.9
--- NOTE | 2023-02-09 03:29 | EDS_ITS ---
HPI History of Present Illness Chief Complaint: Back Narrative Narrative: 32-year-old female with history of back problems presenting with back pain. This is nontraumatic in nature. No symptoms of cauda equina syndrome. Patient states it hurts on the left lumbar paraspinal musculature area. Patient states she has a history of this distantly. She usually gets manipulations by her chiropractor and she goes there once a month. She states the symptoms started earlier today and she was unable to get help. She states she has old prescription options for muscle relaxers but she states they are . [facility] Medical History Anxiety Depression Former tobacco use History of heavy alcohol consumption Lumbar back pain with radiculopathy affecting right lower extremity Multiparity depression Sinus tachycardia seen on monitor and storage bin tender Home Medications vits,calcium no.78-iron fumarate-folic acid 29 mg-1 mg tablet 1 tab PO DAILY 09/04/18 [History Last Taken 03/16/21 06:00] acetaminophen 500 mg tablet 1,000 mg (2 x 500 mg) PO Q6H PRN PRN Pain 1-10 Or Fever #0 tabs 04/07/21 [Rx Last Taken Unknown] benzocaine 20 %-menthol 0.5 % topical aerosol (Dermoplast (with menthol)) 1 spray topical TID PRN PRN perineal discomfort #0 grams 04/07/21 [Rx Last Taken Unknown] hydrocortisone 2.5 % topical cream 1 applic topical TID PRN PRN Discomfort #0 grams 04/07/21 [Rx Last Taken Unknown] naproxen 500 mg tablet 500 mg PO Q8H PRN PRN Pain Score 1-3 #0 tabs 04/07/21 [Rx Last Taken Unknown] naproxen 500 mg tablet (Naprosyn) 500 mg PO BID PRN pain #20 tabs 02/09/23 [Rx Last Taken Unknown] tizanidine 4 mg tablet 4 mg PO Q8H PRN muscle spasticity #20 tabs 02/09/23 [Rx Last Taken Unknown] Allergy/AdvReac Type Severity Reaction Status Date / Time hydrocodone bitartrate AdvReac Nausea Verified 02/09/23 02:36 [From Vicodin] Family History Mother Anxiety and depression Father Diabetes HLD (hyperlipidemia) Surgical History History of back surgery Social History housing: other details: Her significant other, her 12 year old and 1.5 year old. Smoking Status: Former smoker how long ago did patient quit smoking: Quit 5 years prior, smoked cigars (5 per pack, 1.5/day when smoking). alcohol intake: former details: Drank heavily prior, stopped 10 years ago, none currently with . substance use type: does not use ROS ROS ED Constitutional Constitutional ED: Denies chills, fever(s) or sweats Eyes Eyes: Denies blurry vision or change in vision ENT ENT ED: Denies ear pain or sore throat Cardiovascular Cardiovascular: Denies chest pain, palpitations or racing heartbeat Respiratory/Chest Respiratory/Chest: Denies cough, dyspnea or sputum Gastrointestinal Gastrointestinal: Denies abdominal pain, constipation, diarrhea, nausea or vom iting Genitourinary Genitourinary ED: Denies dysuria, hematuria or urinary frequency Musculoskeletal Musculoskeletal: Reports back pain; Denies arthralgias, myalgias or neck pain Integumentary Denies abscess, Abrasions or rash Neurologic Neurologic: Denies headache(s), paresthesias or weakness Psychiatric Psychiatric: Denies anxiety, depression, suicidal ideation or suicidal thoughts Endocrine Endocrinology: Denies polydipsia or polyuria EXAM Physical Exam Const Vital Signs: 02/09/23 02:35 Temperature 97.1 F L Temperature Source Temporal Pulse Rate 96 Respiratory Rate 17 Blood Pressure 120/81 H Blood Pressure Mean 94 Pulse Ox 98 Oxygen Delivery Method Room Air Positive well nourished General Appearance ED: NAD; Negative for pallor HEENT Reports moist mucous membranes Eyes PERRL and EOMs intact bilaterally Resp normal respiratory effort Cardio regular rate and regular rhythm Back/Spine Back/Spine Narrative: Tenderness to palpation left lumbar paraspinal musculature. No midline spinal deformity or step-off. Patient able to move from laying position to seated position. She is able to shift evaluate in the bed. Extremity normal to inspection General Extremety ED: Negative for edema General Extremity: Negative for edema Neuro oriented x3 Sensorium / Orientation: alert Motor Exam: strength 5/5 throughout Psych mental status grossly normal Skin no rashes or lesions noted General Skin Exam: Negative for jaundice or pallor MDM MDM MDM Narrative Medical decision making narrative: Patient presenting with back pain. Seems to be simple lumbar strain. She is tender on exam in the left lumbar paraspinal musculature. She does not want any injections and she requested oral medications. I gave her Naprosyn and Norflex orally. I will give her prescription for muscle relaxers and NSAIDs for home. She states she will follow-up with her chiropractor. Return precautions discussed. Impression: 1. Lumbar strain Discharge Plan Triage Chief Complaint: Back ED Provider: Antoine Donaldson Dx/Rx/DC Orders Instructions: ED Back Spasm, No Trauma Prescriptions: New naproxen [Naprosyn] 500 mg tablet 500 mg PO BID PRN (Reason: pain) Qty: 20 0RF tizanidine 4 mg tablet 4 mg PO Q8H PRN (Reason: muscle spasticity) Qty: 20 0RF No Action vit,[id number] 1 TABLET tablet 1 tab PO DAILY naproxen 500 mg Tablet 500 mg PO Q8H PRN PRN (Reason: Pain Score 1-3) Qty: 0 0RF Dermoplast (with menthol) 20-0.5 % Aerosol 1 spray topical TID PRN PRN (Reason: perineal discomfort) Qty: 0 0RF Protocol: *Topical Application Instructions APPLICATION INSTRUCTIONS: 1 spray 3 times a day as needed for perineal discomfort acetaminophen 500 mg Tablet 1,000 mg PO Q6H PRN PRN (Reason: Pain 1-10 Or Fever) Qty: 0 0RF hydrocortisone 2.5 % Cream 1 applic topical TID PRN PRN (Reason: Discomfort) Qty: 0 0RF Protocol: *Topical Application Instructions APPLICATION INSTRUCTIONS: Apply topically to hemorrhoids as needed for discomfort with pad changes Primary Care Provider: Rick Asencio Referrals: Rick Asencio MD [Primary Care Provider] - Disposition Disposition: Home, Self Care
[2023-02-09] MEDS: Naproxen 500 MG Tablet PO (03:35)
[2023-02-09] MEDS: Orphenadrine 100 MG Tablet PO (03:35)
--- OUTSIDE RECORDS SUMMARY | 2023-02-09 03:51 | XMS RPT_ITS | CCD ---
Author Name Unknown Address [address] [place] [address] Organization [facility] Care Team Providers Care Restaurant Floor Manager Name Role Phone MARTINEZROBBY Unavailable Unavailable NOLAN SWENSON Unavailable Unavailable Yuli Al MD Primary Care Provider No, Referral Unavailable Unavailable Hilton Silva MD Unavailable [phone] Hilton Silva MD Unavailable [phone] YULI AL Primary Care Unavailable YULI AL Attending Unavailable PAIGE DE LA GARZA Referring Unavailable PAIGE DE LA GARZA Attending Unavailable YULI AL Primary Care Unavailable YULI AL Attending Unavailable YULI AL Primary Care Unavailable YULI AL Attending Unavailable YULI AL Primary Care Unavailable YULI AL Primary Care Unavailable PAIGE DE LA GARZA Attending Unavailable Allergies Allergy Classification Reported Allergen(s) Allergy Type Date of Onset Reaction(s) Facility (8 sources) Acetaminophen / HYDROcodone; Translations: [HYDROCODONE-ACETA MINOPHEN] Drug Allergy 09-18-2014 GI Upset [facility] Work Phone: Medications Current Medications Medication Drug Class(es) Dates Sig (Normalized) Sig (Original) levonorgestrel 0.992651 mg/hr intrauterine system (5 sources) Progestin, Progestin-containi ng Intrauterine Device Start: 09-26-2022 End: 09-24-2030 levonorgestrel (MIRENA) 21 mcg/24 hours (8 yrs) 52 mg IUD Indications: Encounter for IUD insertion 1 Each by INTRAUTERINE route as directed. 1 Each 0 09/26/2022 09/24/2030 Active Completed/Discontinued Medications Medication Drug Class(es) Dates Sig (Normalized) Sig (Original) 12 hr buPROPion hydrochloride 150 mg extended release oral tablet (7 sources) Aminoketone Start: 10-24-2022 buPROPion SR (WELLBUTRIN SR) 150 mg 12 hr tablet Take one tablet twice a day 60 tablet 5 10/24/2022 Active Problems Active Problems Problem Classification Problem Date Documented Date Episodic/Chronic Anxiety disorders (8 sources) Moderate anxiety; Translations: [Anxiety disorder, unspecified] Onset: 06-09-2022 Chronic Contraceptive and procreative management (5 sources) Patient encounter status; Translations: [Encounter for insertion of intrauterine contraceptive device] 09-12-2022 Episodic Menstrual disorders (1 source) Irregular periods; Translations: [Irregular menstruation, unspecified] 12-05-2022 Chronic Mood disorders (8 sources) Moderate major depression ; Translations: [Major depressive disorder, single episode, moderate] Onset: 06-09-2022 Chronic Other complications of (2 sources) Maternal obesity complicating , childbirth and the puerperium, antepartum; Translations: [Obesity complicating , first trimester] Onset: 02-19-2020 10-12-2020 Chronic Spondylosis; intervertebral disc disorders; other back problems (6 sources) Lumbago-sciatica due to displacement of lumbar intervertebral disc; Translations: [Other intervertebral disc displacement, lumbosacral region] Onset: 10-07-2015 01-08-2019 Chronic Unclassified (1 source) 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 findings / Z01.419(ICD-10) Onset: 11-08-2017 Past or Other Problems Problem Classification Problem Date Documented Date Episodic/Chronic Cardiac dysrhythmias (6 sources) ECG: sinus tachycardia; Translations: [Tachycardia, unspecified] Onset: 02-20-2019 02-20-2019 Episodic Other complications of (2 sources) Finding of pattern of ; Translations: [Supervision of other high risk pregnancies, unspecified trimester] Onset: 02-19-2020 10-12-2020 Episodic Other screening for suspected conditions (not mental disorders or infectious disease) (7 sources) Partial thromboplastin time increased; Translations: [Abnormal coagulation profile] Onset: 02-17-2015 02-17-2015 Episodic Residual codes; unclassified (6 sources) H/O Spinal surgery; Translations: [Other specified postprocedural states] Onset: 02-19-2020 02-19-2020 Episodic Residual codes; unclassified (6 sources) H/O: depression; Translations: [Personal history of other complications of , childbirth and the puerperium] Onset: 02-19-2020 10-12-2020 Episodic Screening and history of mental health and substance abuse codes (3 sources) H/O: anxiety state; Translations: [Personal history of other mental and behavioral disorders] Onset: 01-11-2019 10-12-2020 Episodic Spondylosis; intervertebral disc disorders; other back problems (12 sources) Chronic low back pain; Translations: [Lumbago with sciatica, unspecified side] Onset: 02-17-2016 01-08-2019 Episodic Unclassified (1 source) 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; Translations: [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 findings] Onset: 11-08-2017 Results Test Name Value Interpretation Reference Range Facil it Vital Signs Date Time Vital Sign Value Performing Clinician Lilliam espitia 12-05-2022 14:27-0400 Body weight 86.82 kg Paige Holli SECURITIES LENDING TRADER.CONTRACT ASSISTANT Work Phone: [facility] 12-05-2022 14:27-0400 Diastolic blood pressure 80 mm[Hg] Paige Holli SECURITIES LENDING TRADER.CONTRACT ASSISTANT Work Phone: [facility] 12-05-2022 14:27-0400 Systolic blood pressure 110 mm[Hg] Paige Holli SECURITIES LENDING TRADER.CONTRACT ASSISTANT Work Phone: [facility] 10-24-2022 14:01-0400 Body weight 88 kg Yuli Al MD Work Phone: [facility] 10-24-2022 14:01-0400 Diastolic blood pressure 84 mm[Hg] Yuli Al MD Work Phone: [facility] 10-24-2022 14:01-0400 Heart rate 62 /min Yuli Al MD Work Phone: [facility] 10-24-2022 14:01-0400 Respiratory rate 16 /min Yuli Al MD Work Phone: [facility] 10-24-2022 14:01-0400 Systolic blood pressure 118 mm[Hg] Yuli Al MD Work Phone: [facility] 09-26-2022 09:16-0400 Diastolic blood pressure 80 mm[Hg] Paige Holli SECURITIES LENDING TRADER.CONTRACT ASSISTANT Work Phone: [facility] 09-26-2022 09:16-0400 Heart rate 62 /min Paige Holli SECURITIES LENDING TRADER.CONTRACT ASSISTANT Work Phone: [facility] 09-26-2022 09:16-0400 Systolic blood pressure 120 mm[Hg] Paige Holli SECURITIES LENDING TRADER.CONTRACT ASSISTANT Work Phone: [facility] 09-26-2022 09:02-0400 Body weight 85 kg Paige Dexter SECURITIES LENDING TRADER.CONTRACT ASSISTANT Work Phone: [facility] 06-09-2022 14:13-0400 Body weight 88.45 kg Yuli Al MD Work Phone: [facility] 06-09-2022 14:13-0400 Diastolic blood pressure 78 mm[Hg] Yuli Al MD Work Phone: [facility] 06-09-2022 14:13-0400 Heart rate 84 /min Yuli Al MD Work Phone: [facility] 06-09-2022 14:13-0400 Respiratory rate 16 /min Yuli Al MD Work Phone: [facility] 06-09-2022 14:13-0400 Systolic blood pressure 120 mm[Hg] Yuli Al MD Work Phone: [facility] Encounters Encounter Date Encounter Type Care Provider Facility Start: 12-21-2022 E-mail encounter fro m caregiver Pratima Concepcion MA [facility] Start: 12-21-2022 Patient encounter procedure Pratima Concepcion MA [facility] Procedures Date Procedure Procedure Detail Performing Clinician Start: 09-26-2022 Urine test visual color cmprsn meths Paige Holli SECURITIES LENDING TRADER.CONTRACT ASSISTANT Work Phone: Plan of Treatment Date Care Activity Detail Author Start: 12-06-2027 HPV Testing HPV Testing [facility] Start: 12-06-2027 Pap Testing Pap Testing [facility] Start: 10-05-2025 HPV TESTING HPV TESTING [facility] Start: 10-05-2025 PAP TESTING PAP TESTING [facility] Start: 01-19-2025 Urine microalbumin profile [facility] Start: 06-10-2023 COVID-19 VACCINE (#1) COVID-19 VACCI NE (#1) [facility] Immunizations Immunization Date Immunization Notes Care Provider Fa medhat 01-19-2015 tetanus toxoid, redu daryl diphtheria toxoid, and acellular pertussis vaccine, adsorbed Yuli Al MD Work Phone: [facility] Work Phone: Payers Date Payer Category Payer Medicaid [employer] [facility] MEDICAID [id number] 2022-Present [phone] [address] [place] [address] Medicaid [id number] 2022 Medicaid [id number] Unknown [id number] Social History Date Type Detail Facility Start: 06-09-2022 Tobacco smoking stat us NHIS Ex-smoker [facility] End: 02-13-2016 History of tobacco use Current smoker [facility] End: 02-13-2016 History of tobacco use Cigarette Smoker [facility] Start: 06-09-2022 Tobacco use and exposure Smoke less tobacco non-user [facility] Start: 06-10-2022 End: 12-05-2022 Alcohol intake Ex-drinker (finding) [facility] Start: 06-08-2022 History SDOH Alcohol Frequency 5 [facility] Start: 06-08-2022 History SDOH Alcohol Std Drinks 1 [facility] Start: 06-08-2022 History SDOH Alcohol Binge 3 [facility] Start: 06-08-2022 History SDOH Social Connections Yarsanism 2 [facility] Start: 06-08-2022 History SDOH Social Connections Living 7 [facility] Start: 06-08-2022 History SDOH Physica l Activity MPS 4 [facility] Start: 02-20-2019 Education 21 [facility] Start: 07-31-2018 Alcohol Comment not while [facility] Start: 1990 Sex Assigned At Female C [facility] Start: 06-07-2022 End: 07-21-2022 History of Social function [facility] Start: 06-07-2022 End: 07-21-2022 Social connection and isolation panel [facility] Do you belong to any clubs or organizations such as jehovah's witness groups, unions, fraternal or athletic groups, or school groups? No [facility] Are you now , , , , never or living with a partner? Never [facility] How often to you hav e a drink containing alcohol? 4 or more times a week [facility] How many standard dr inks containing alcohol do you have on a typical day? 1 or 2 [facility] How often do you hav e 6 or more drinks on 1 occasion? Monthly [facility] How hard is it for y ou to pay for the very basics like food, housing, medical care, and heating Very hard [facility] Adult Depression Scr eening Assessment 5 [facility] Do you feel stress - tense, restless, nervous, or anxious, or unable to sleep at night because your mind is troubled all the time - these days [OSQ] Very much [facility] (I/We) worried whekatina er (my/our) food would run out before (I/we) got money to buy more. Sometimes true [facility] Start: 10-06-2019 Gender identity Identifies as female gender (finding) [facility] Start: 10-06-2019 Sexual orientation Heterosexual (hannah springer) [facility] How often do you hav e 6 or more drinks on 1 occasion? Monthly [facility] Clinical Notes 01-11-2019 to 12-05-2022 Paige De La Garza APRN.[facility] - 12/05/2022 2:26 PM Yuli Cuevas MD - 10/24/2022 2:00 PM Paige Gamez APRN.CNP - 09/26/2022 8:54 AM EDTPatient Instructions Note Date & Type Note Facility 12-05-2022 Note HNO ID: [id number] Author: Paige De La Garza APRN.CNP Service: ? Author Type: Nurse Practitioner Type: Progress Notes Filed: 12/05/2022 3:05 PM Note Text: Letha Owens presents today for IUD check. She had a Mirena placed on 09/26/22. She has had heavy bleeding for 3 weeks monthly since placement. Cramping occurs in addition to bleeding. REVIEW OF SYSTEMS: : No history of dysuria, frequency or incontinence TREASURY MANAGER: Positive for abnormal vaginal bleeding - bleeding for 3 weeks every month. PHYSICAL EXAMINATION: Wt 191 lb 6.4 oz (86.8kg) LMP 09/21/2022 ABDOMEN:deferred EXTERNAL GENITALIA: Normal genitalia and Bartholins, Urethra, Sken'e normal CERVIX: smooth, no lesions. Ectropic. IUD strings visible. UTERUS: normal size and non-tender ADNEXA: negative for tenderness or masses ASSESSMENT/PLAN: 1. Encounter for routine checking of intrauterine contraceptive device (IUD) - ICD9: V25.42, ICD10: Z30.431 (primary diagnosis) - IUD correctly positioned on exam 2. Screening for malignant neoplasm of cervix - ICD9: V76.2, ICD10: Z12.4 - LGSIL on colpo 2020 - Pap today 3. Encounter for screening for human papillomavirus (HPV) - ICD9: V73.81, ICD10: Z11.51 - LGSIL on colpo 2020 - HPV testing today 4. Irregular menstrual bleeding - ICD9: 626.4, ICD10: N92.6 - Period for 3 weeks every month - IUD in proper placement on exam - Ultrasound to verify placement - Consider expectant management vs removal vs adding OCP if patient is candidate ERIBERTO Pascal APRN.CNP Medical Decision Making: Problems: Moderate: New problem with uncertain prognosis Data: Unique test(s) ordered: 2 Risk: Low: Low risk from testing/treatment Medical Decision Making Level: 3 - Low [facility] 12-05-2022 History of Presen t illness Narrative Letha Owens presents today for IUD check. She had a Mirena placed on 09/26/22. She has had heavy bleeding for 3 weeks monthly since placement. Cramping occurs in addition to bleeding. REVIEW OF SYSTEMS: : No history of dysuria, frequency or incontinence TREASURY MANAGER: Positive for abnormal vaginal bleeding - bleeding for 3 weeks every month. PHYSICAL EXAMINATION: Wt 191 lb 6.4 oz (86.8kg) LMP 09/21/2022 ABDOMEN:deferred EXTERNAL GENITALIA: Normal genitalia and Bartholins, Urethra, Sken'e normal CERVIX: smooth, no lesions. Ectropic. IUD strings visible. UTERUS: normal size and non-tender ADNEXA: negative for tenderness or masses ASSESSMENT/PLAN: 1. Encounter for routine checking of intrauterine contraceptive device (IUD) - ICD9: V25.42, ICD10: Z30.431 (primary diagnosis) - IUD correctly positioned on exam 2. Screening for malignant neoplasm of cervix - ICD9: V76.2, ICD10: Z12.4 - LGSIL on colpo 2020 - Pap today 3. Encounter for screening for human papillomavirus (HPV) - ICD9: V73.81, ICD10: Z11.51 - LGSIL on colpo 2020 - HPV testing today 4. Irregular menstrual bleeding - ICD9: 626.4, ICD10: N92.6 - Period for 3 weeks every month - IUD in proper placement on exam - Ultrasound to verify placement - Consider expectant management vs removal vs adding OCP if patient is candidate ERIBERTO Pascal APRN.CNP Medical Decision Making: Problems: Moderate: New problem with uncertain prognosis Data: Unique test(s) ordered: 2 Risk: Low: Low risk from testing/treatment Medical Decision Making Level: 3 - Low documented in this encounter [facility] 10-24-2022 Note HNO ID: [id number] Author: Yuli Al MD Service: ? Author Type: Physician Type: Progress Notes Filed: 10/24/2022 2:39 PM Note Text: Chief Complaint Patient presents with: Follow Up HPI Letha Owens is a 32 year old female who presents here today for follow up on anxiety. Patient was in seen back in May for anxiety and weight gain and placed on Wellbutrin. How is patient feeling on the medication? Doing better since being on the Wellbutrin. But not as well as she did the first few weeks. No side affect issues. Her appetite does seem less. Still exercising? Not doing as much exercising. Still walking. TSH lab results were cancelled? Patient has a history of anxiety and was diagnosed with anxiety when she was 18 and was placed on a medication but did not like the way she felt after taking it once and never took it again. Not sure what it was. The anxiety never got better and seems to have been progressively getting worse. Does not feel depressed. No thoughts of suicidal of homicidal thoughts. Has not been getting panic. Went to therapy and has learned measures to help. Not aware of any family Hx of thyroid issues. Patient is a stress eater and and will also eat more when anxious. Used to have a time where she would make herself throw up to lose weight and fears she may go back to that. Last physical 2014. Patient sees [facility] - last visit 09/26/2022 Past medical history, appointments, medications, allergies reviewed. Previous Medical History PAST MEDICAL HISTORY Diagnosis Date Anemia Chronic bilateral low back pain with sciatica 02/17/2016 Ecchymoses, spontaneous 02/17/2015 Lumbago-sciatica due to displacement of lumbar intervertebral disc 10/07/2015 dep depression Radiculopathy, lumbar region 07/12/2018 Previous Surgical History PAST SURGICAL HISTORY Procedure Laterality Date BACK SURGERY HX 2012 lower lumbar discectomy Family History FAMILY HISTORY Problem Relation Age of Onset No Known Problems Mother Hypertension Father Diabetes Father No Known Problems Sister No Known Problems Sister No Known Problems Brother No Known Problems Maternal Grandmother Hearing Loss Maternal Grandfather Dementia Paternal Grandmother Dementia Paternal Grandfather Diabetes Paternal Aunt Patient Allergies ALLERGIES Allergen Reactions Vicodin [Hydrocodon* GI Upset Nausea Current Medications Current Outpatient Medications on File Prior to Visit Medication Sig levonorgestrel (MIRENA) 21 mcg/24 hours (8 yrs) 52 mg IUD 1 Each by INTRAUTERINE route as directed. buPROPion SR (WELLBUTRIN SR) 100 mg 12 hr tablet Take one a day for 2 weeks then go to one twice a day No current facility-administered medications on file prior to visit. Social History Social History Tobacco Use Smoking status: Former Types: Cigarettes Quit date: 2016 Years since quittin.6 Smokeless tobacco: Never Vaping Use Vaping Use: Never used Substance Use Topics Alcohol use: Not Currently Comment: not while Drug use: No Review of Symptoms REVIEW OF SYSTEMS See HPI EXAM: BP 118/84 (BP Site: Right Arm, BP Position: Sitting, BP Cuff Size: Large Adult) Pulse 62 Resp 16 Wt 88 kg (194 lb) LMP 09/21/2022 (Approximate) BMI 33.30 kg/m? Last 5 Encounter Wt Readings: Date: Wt: 10/24/2022 88 kg (194 lb) 09/26/2022 85 kg (187 lb 6.4 oz) 06/09/2022 88.5 kg (195 lb) 02/15/2021 97.1 kg (214 lb) 02/15/2021 96.9 kg (213 lb 9.6 oz) General Appearance: Well appearing, alert, in no acute distress, well-hydrated, well nourished.. Neck: Supple, no adenopathy; thyroid symmetric, normal size, no bruits. Lungs: Lungs clear to auscultation. No wheezing, rhonchi, rales.. Heart: RRR without murmur, gallop, or rubs. No ectopy. Abdomen: Normal abdominal exam, Abdomen soft, non-tender. Bowel sounds normal. No masses, organomegaly. Health Maintenance List Influenza Vaccine(1) due on 10/13/2022 Hepatitis B Vaccine(1 of 3 - 3-dose series) due on 06/10/2023 Covid-19 Vaccine(1) due on 06/10/2023 DTaP,Tdap,Td Vaccine(2 - Td or Tdap) due on 01/19/2025 Pap Testing due on 10/05/2025 HPV Testing due on 10/05/2025 Hepatitis C Screening Completed HIV Screening Completed HPV Vaccine Aged Out Data reviewed A/P ASSESSMENT/PLAN: 1. Moderate anxiety - ICD9: 300.00, ICD10: F41.9 (primary diagnosis) - will increase Wellbutrin SR to 150 mg twice a day - TSH BLD - T4 FREE/FREE THYROX 2. Moderate major depression (HCC) - ICD9: 296.22, ICD10: F32.1 - as above. Requested Prescriptions Signed Prescriptions Disp Refills buPROPion SR (WELLBUTRIN SR) 150 mg 12 hr tablet 60 tablet 5 Sig: Take one tablet twice a day F/u in 2 months recheck Yuli Al MD [facility] 10-24-2022 History of Presen t illness Narrative Chief Complaint Patient presents with: Follow Up HPI Letha Owens is a 32 year old female who presents here today for follow up on anxiety. Patient was in seen back in May for anxiety and weight gain and placed on Wellbutrin. How is patient feeling on the medication? Doing better since being on the Wellbutrin. But not as well as she did the first few weeks. No side affect issues. Her appetite does seem less. Still exercising? Not doing as much exercising. Still walking. TSH lab results were cancelled? Patient has a history of anxiety and was diagnosed with anxiety when she was 18 and was placed on a medication but did not like the way she felt after taking it once and never took it again. Not sure what it was. The anxiety never got better and seems to have been progressively getting worse. Does not feel depressed. No thoughts of suicidal of homicidal thoughts. Has not been getting panic. Went to therapy and has learned measures to help. Not aware of any family Hx of thyroid issues. Patient is a stress eater and and will also eat more when anxious. Used to have a time where she would make herself throw up to lose weight and fears she may go back to that. Last physical 2014. Patient sees [facility] - last visit 09/26/2022 Past medical history, appointments, medications, allergies reviewed. Previous Medical History PAST MEDICAL HISTORY Diagnosis Date Anemia Chronic bilateral low back pain with sciatica 02/17/2016 Ecchymoses, spontaneous 02/17/2015 Lumbago-sciatica due to displacement of lumbar intervertebral disc 10/07/2015 dep depression Radiculopathy, lumbar region 07/12/2018 Previous Surgical History PAST SURGICAL HISTORY Procedure Laterality Date BACK SURGERY HX 2013 lower lumbar discectomy Family History FAMILY HISTORY Problem Relation Age of Onset No Known Problems Mother Hypertension Father Diabetes Father No Known Problems Sister No Known Problems Sister No Known Problems Brother No Known Problems Maternal Grandmother Hearing Loss Maternal Grandfather Dementia Paternal Grandmother Dementia Paternal Grandfather Diabetes Paternal Aunt Patient Allergies ALLERGIES Allergen Reactions Vicodin [Hydrocodon* GI Upset Nausea Current Medications Current Outpatient Medications on File Prior to Visit Medication Sig levonorgestrel (MIRENA) 21 mcg/24 hours (8 yrs) 52 mg IUD 1 Each by INTRAUTERINE route as directed. buPROPion SR (WELLBUTRIN SR) 100 mg 12 hr tablet Take one a day for 2 weeks then go to one twice a day No current facility-administered medications on file prior to visit. Social History Social History Tobacco Use Smoking status: Former Types: Cigarettes Quit date: 2016 Years since quittin.6 Smokeless tobacco: Never Vaping Use Vaping Use: Never used Substance Use Topics Alcohol use: Not Currently Comment: not while Drug use: No Review of Symptoms REVIEW OF SYSTEMS See HPI EXAM: BP 118/84 (BP Site: Right Arm, BP Position: Sitting, BP Cuff Size: Large Adult) Pulse 62 Resp 16 Wt 88 kg (194 lb) LMP 09/21/2022 (Approximate) BMI 33.30 kg/m Last 5 Encounter Wt Readings: Date: Wt: 10/24/2022 88 kg (194 lb) 09/26/2022 85 kg (187 lb 6.4 oz) 06/09/2022 88.5 kg (195 lb) 02/15/2021 97.1 kg (214 lb) 02/15/2021 96.9 kg (213 lb 9.6 oz) General Appearance: Well appearing, alert, in no acute distress, well-hydrated, well nourished.. Neck: Supple, no adenopathy; thyroid symmetric, normal size, no bruits. Lungs: Lungs clear to auscultation. No wheezing, rhonchi, rales.. Heart: RRR without murmur, gallop, or rubs. No ectopy. Abdomen: Normal abdominal exam, Abdomen soft, non-tender. Bowel sounds normal. No masses, organomegaly. Health Maintenance List Influenza Vaccine(1) due on 10/13/2022 Hepatitis B Vaccine(1 of 3 - 3-dose series) due on 06/10/2023 Covid-19 Vaccine(1) due on 06/10/2023 DTaP,Tdap,Td Vaccine(2 - Td or Tdap) due on 01/19/2025 Pap Testing due on 10/05/2025 HPV Testing due on 10/05/2025 Hepatitis C Screening Completed HIV Screening Completed HPV Vaccine Aged Out Data reviewed A/P ASSESSMENT/PLAN: 1. Moderate anxiety - ICD9: 300.00, ICD10: F41.9 (primary diagnosis) - will increase Wellbutrin SR to 150 mg twice a day - TSH BLD - T4 FREE/FREE THYROX 2. Moderate major depression (HCC) - ICD9: 296.22, ICD10: F32.1 - as above. Requested Prescriptions Signed Prescriptions Disp Refills buPROPion SR (WELLBUTRIN SR) 150 mg 12 hr tablet 60 tablet 5 Sig: Take one tablet twice a day F/u in 2 months recheck Yuli Al MD documented in this encounter [facility] 10-04-2022 Note HNO ID: [id number] Author: Yuli Al MD Service: ? Author Type: Physician Type: Progress Notes Filed: 10/05/2022 9:18 AM Note Text: Patient had to leave. Aptt rescheduled. [facility] 09-26-2022 Note HNO ID: [id number] Author: Paige De La Garza APRN.CNP Service: ? Author Type: Nurse Practitioner Type: Progress Notes Filed: 09/26/2022 9:15 AM Note Text: Flood Control Engineer offered: Patient declines. Letha presents today for IUD insertion for contraception. Patient's last menstrual period was 09/21/2022 (approximate). GC/chlamydia: Not done: no risk factors and/or patient declines screening test: negative Side effects including irregular bleeding were discussed with the patient. The patient understands that it should be removed in 8 years or sooner if the patient desires a . IUD source: office provided IUD lot #: [id number] Exp date: 10/2024 UNIVERSAL PROTOCOL / SAFETY CHECKLIST Procedure to be Performed: Mirena IUD Insertion Sign In: A Moment of CARE was completed. Personnel directly involved with the procedure wore the appropriate PPE (Personal Protective Equipment). Patient/Surrogate Stated/Verified: PATIENT VERIFIED(optional for EMERGENT procedures): Patient name, Date of , Relevant allergies, and The intended procedure Time Out Communication: Intended patient and procedure match the source documents. Consent documented and matches the intended procedure. Sign Out: SIGN OUT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 Radicular leg pain 09/18/2014 5 Normal 09/02/2008 07/31/2018 Supervision of normal first 08/05/2008 07/31/2018 documented as of this encounter (statuses as of 09/14/2022) [facility] note* Diagnosis Moderate anxiety- Primary Moderate major depression (HCC) Major depressive disorder, single episode, moderate documented in this encounter [facility] note* Diagnosis Encounter for IUD insertion- Primary Encounter for insertion of intrauterine contraceptive device documented in this encounter [facility] note* Diagnosis Encounter for IUD insertion- Primary Encounter for insertion of intrauterine contraceptive device documented in this encounter [facility] note* Diagnosis Moderate anxiety- Primary Moderate major depression (HCC) Major depressive disorder, single episode, moderate documented in this encounter [facility] note* Diagnosis Encounter for routine checking of intrauterine contraceptive device (IUD)- Primary Screening for malignant neoplasm of cervix Screening for malignant neoplasm of the cervix Encounter for screening for human papillomavirus (HPV) Special screening examination for human papillomavirus (HPV) Irregular menstrual bleeding Irregular menstrual cycle IUD (intrauterine device) in place Presence of intrauterine contraceptive device documented in this encounter [facility] for referral (narrative)* Outpatient Procedure (Routine) - Pending Review Specialty Diagnoses / Procedures Referred By Meredith edmond Referred To Contact [facility] Diagnoses Encounter for IUD insertion Procedures INSERT INTRAUTERINE DEVICE LEVONORGESTREL IU 52MG 5 YR INSERT INTRAUTERINE DEVICE Otilia Fletcher MD [address] [place] [address] [place] [address] Referral ID Status Reason Start Date Expiration Date Visits Requested Visits Authorized [id number] Pending Review Auto-Generat ed Referral 09/14/2022 09/12/2023 1 1 * Outpatient Procedure (Routine) - Authorized Specialty Diagnoses / Procedures Referred By Meredith edmond Referred To Contact [facility] Diagnoses Encounter for IUD insertion Encounter for removal of intrauterine contraceptive device Procedures REMOVE INTRAUTERINE DEVICE REMOVE INTRAUTERINE DEVICE INSERT INTRAUTERINE DEVICE LEVONORGESTREL IU 52MG 5 YR LEVONORGESTREL-RELEASING INTR CONTRACEPTIVE (KYLEENA), 19.5 MG INTRAUT COPPER CONTRACEPTIVE Otilia Mehta MD [address] [place] [address] [facility] [address] [place] [address] Referral ID Status Reason Start Date Expiration Date Visits Requested Visits Authorized [id number] Authorized Auto-Generat ed Referral 09/12/2022 02/11/2023 2 2 [facility] for referral (narrative)* Outpatient Procedure (Routine) - Pending Review Specialty Diagnoses / Procedures Referred By Contac t Referred To Contact [facility] Diagnoses Encounter for IUD insertion Procedures INSERT INTRAUTERINE DEVICE LEVONORGESTREL IU 52MG 5 YR INSERT INTRAUTERINE DEVICE Paige De La Garza APRN.CNP [address] [place] [address] [facility] [address] [place] [address] Referral ID Status Reason Start Date Expiration Date Visits Requested Visits Authorized [id number] Pending Review Auto-Generat ed Referral 09/26/2022 09/26/2023 [facility] Diagnostic Procedure Only (Routine) - Authorized Specialty Diagnoses / Procedures Referred By Contac t Referred To Contact [facility] Diagnoses Irregular menstrual bleeding IUD (intrauterine device) in place Procedures US FEMALE PELVIS TRANSVAG US TRANSVAGINAL Paige De La Garza APRN.CNP [address] [place] [address] [place] [address] Referral ID Status Reason Start Date Expiration Date Visits Requested Visits Authorized [id number] Authorized Auto-Generat ed Referral 01/04/2024 1 1 [facility] Summary Purpose Family History No Family History Records FoundNo Family History Records FoundNo Family History Records FoundNo Family History Records Found Advance Directives No Advanced Directives Records FoundNo Advanced Directives Records FoundNo Advanced Directives Records FoundNo Advanced Directives Records Found Medications Administered Section Inactive Administered Medications - up to 3 most recent administrations Medication Order MAR Action Action Date Dose Rate Site levonorgestrel 21 mcg/24 hours (8 yrs) 52 mg 1 Each intrauterine device (MIRENA) 1 Each, INTRAUTERINE, ONCE (UP TO 30 DAYS AMB), 1 dose, On Sun09/26/22 at 0930, Hazardous Potential Reproductive Risk Drug: Use appropriate PPE. Given 09/26/2022 9:17 AM EDT 1 Each Other Additional Source Comments INFORMATION SOURCE (unrecogn ized section and content) DATE CREATED AUTHOR AUTHOR'S ORGANIZ ATION 01/16/2019 [facility] DATE CREATED AUTHOR AUTHOR'S ORGANIZ ATION 12/16/2022 [facility] Source Comments (unrecognize d section and content) In the event this informatio n is protected by the Federal Confidentiality of Alcohol and Drug Abuse Patient Records regulations: The Federal rules restrict any use of the information to criminally investigate or prosecute any alcohol or drug abuse patient.[facility] the event this information is protected by the Federal Confidentiality of Alcohol and Drug Abuse Patient Records regulations: The Federal rules restrict any use of the information to criminally investigate or prosecute any alcohol or drug abuse patient.[facility] the event this information is protected by the Federal Confidentiality of Alcohol and Drug Abuse Patient Records regulations: The Federal rules restrict any use of the information to criminally investigate or prosecute any alcohol or drug abuse patient.[facility] the event this information is protected by the Federal Confidentiality of Alcohol and Drug Abuse Patient Records regulations: The Federal rules restrict any use of the information to criminally investigate or prosecute any alcohol or drug abuse patient.[facility] the event this information is protected by the Federal Confidentiality of Alcohol and Drug Abuse Patient Records regulations: The Federal rules restrict any use of the information to criminally investigate or prosecute any alcohol or drug abuse patient.[facility] the event this information is protected by the Federal Confidentiality of Alcohol and Drug Abuse Patient Records regulations: The Federal rules restrict any use of the information to criminally investigate or prosecute any alcohol or drug abuse patient.[facility] Care Teams (unrecognized sec tion and content) 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 Start Date End Date Yuli Al MD [address] [place] [address] PCP - General Family Medicine 10/06/14 No, Referral Referring Cardiology 02/27/19 Hilton Silva MD [address] [place] [address] Primary Staff Physician Cardiology 07/29/19 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 Start Date End Date Yuli Al MD [address] [place], [place] [id number] PCP - General Family Medicine 10/06/14 No, Referral Referring Cardiology 02/27/19 Hilton Silva MD [address] [address] Primary Staff Physician Cardiology 07/29/19 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 Start Date End Date Yuli Al MD [address] [place] [address] PCP - General Family Medicine 10/06/14 No, Referral Referring Cardiology 02/27/19 Hilton Silva MD [address] [place] [address] Primary Staff Physician Cardiology 07/29/19 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 Start Date End Date Yuli Al MD [address] [place] [address] PCP - General Family Medicine 10/06/14 No, Referral Referring Cardiology 02/27/19 Hilton Silva MD [address] [place] [address] Primary Staff Physician Cardiology 07/29/19 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 [address] [facility] [address] [place] [address] Referral ID Status Reason Start Date Expiration Date V isits Requested Visits Authorized [id number] Closed Auto-Generate d Referral 09/12/2022 02/11/2023 1 1 Reason Comments Follow Up Reason Comments IUD follow up FOR RECORDS PERTAINING TO PATIENTS WHO ARE OR HAVE BEEN ENROLLED IN A CHEMICAL DEPENDENCY/SUBSTANCEABUSE PROGRAM, SOME INFORMATION MAY BE OMITTED. This clinical summary was aggregated from multiple sources. Caution should be exercised in using it in the provision of clinical care. This summary normalizes information from multiple sources, and as a consequence, information in this document may materially change the coding, format and clinical context of patient data. In addition, data may be omitted in some cases. CLINICAL DECISIONS SHOULD BE BASED ON THE PRIMARY CLINICAL RECORDS. [employer] provides no warranty or guarantee of the accuracy or completeness of information in this document.
== END 2023-02-09 04:50 | disposition home or self-care (01) ==
PROVIDERS: Emergency Provider Student in an Organized Health Care Education/Training Program; PCP Family Medicine; Referring Provider Student in an Organized Health Care Education/Training Program; Visit Provider Student in an Organized Health Care Education/Training Program
DX: S39.012A Strain of muscle, fascia and tendon of lower back, initial encounter (principal); Z87.891 Personal history of nicotine dependence; X58.XXXA Exposure to other specified factors, initial encounter
CPT/HCPCS: 99283